=== PATIENT | female | born 1990 | race Caucasian/White ===

== ENCOUNTER 2019-05-24 18:18 | Emergency (ER) | payer OTHER ==
[2019-05-24] MEDS ORDERED: SODIUM CHLORIDE 0.9% 1,000 ML IV STA (18:39)
--- NOTE | 2019-05-24 18:44 | ED ---
General Adult HPI - General Source: patient, family, RN notes reviewed Mode of arrival: ambulatory Limitations: no limitations <Aaron Gallego - Last Filed: 05/24/19 20:42> <Rosa Ortiz - Last Filed: 05/25/19 03:08> - General Chief complaint: Overdose Stated complaint: Poss overdose - History of Present Illness Initial comments: This is a 28-year-old female who is brought in by her because she told him that she took a bunch of Seroquel. Patient states she took at 4:00. Patient is very lethargic and a very poor historian at this time so most of the history does come from the . states he came home from work after they've been arguing since yesterday and found her in the bed sleeping very soundly. Eventually he got out of her that she took some Seroquel because she wanted to kill herself. Patient states she was drinking some alcohol as well. Patient continues to say she does want to kill herself. This is all the information has and the patient is unable to give any further history b ecause she's agitated and is uncooperative at this time (Aaron Gallego) - Related Data Home Medications Medication Instructions Recorded Confirmed Citalopram Hydrobromide [CeleXA] 40 mg PO DIRECTED 05/24/19 05/24/19 Gabapentin [Neurontin] 200 mg PO DIRECTED 05/24/19 05/24/19 lamoTRIgine [LaMICtal] 200 mg PO DIRECTED 05/24/19 05/24/19 Allergies Allergy/AdvReac Type Severity Reaction Status Date / Time Tetracyclines Allergy Rash/Hives Verified 05/24/19 19:01 Review of Systems ROS Other: All systems not noted in ROS Statement are negative. <Aaron Gallego - Last Filed: 05/24/19 20:42> ROS Other: All systems not noted in ROS Statement are negative. <Rosa Ortiz - Last Filed: 05/25/19 03:08> ROS Statement: Those systems with pertinent positive or pertinent negative responses have been documented in the HPI. Past Medical History Past Medical History: No Reported History Additional Past Medical History / Comment(s): Current self-inflicted lacerations to anterior bilat. forearms with sutures. History of Any Multi-Drug Resistant Organisms: None Reported Past Surgical History: No Surgical Hx Reported Past Anesthesia/Blood Transfusion Reactions: No Reported Reaction Additional Past Anesthesia/Blood Transfusion Reaction / Comment(s): Pt. had 2 Epidurals with childbirth without any reaction but has had no other types of anesthesia or blood transfusions. Past Psychological History: Depression Smoking Status: Current every day smoker Past Alcohol Use History: None Reported Past Drug Use History: Marijuana - Past Family History Mother Family Medical History: Congestive Heart Failure (CHF), Liver Disease Additional Family Medical History / Comment(s): Pt. states her mother abused alcohol and at the age of 42 y.o. from CHF and Cirrhosis of the liver due to the sub. abuse. <Aaron Gallego - Last Filed: 05/24/19 20:42> General Exam Limitations: no limitations <Aaron Gallego - Last Filed: 05/24/19 20:42> - General Exam Comments Initial Comments: GENERAL: Patient is well-developed and well-nourished. Patient is nontoxic and well- hydrated and is in mild distress. Patient is lethargic and mildly combative ENT: Neck is soft and supple. No significant lymphadenopathy is noted. Oropharynx is clear. Moist mucous membranes. Neck has full range of motion without eliciting any pain. EYES: The sclera were anicteric and conjunctiva were pink and moist. Extraocular movements were intact and pupils were equal round and reactive to light. Eyelids were unremarkable. PULMONARY: Unlabored respirations. Good breath sounds bilaterally. No audible rales rhonchi or wheezing was noted. CARDIOVASCULAR: There is a regular rate and rhythm without any murmurs gallops or rubs. ABDOMEN: Soft and nontender with normal bowel sounds. SKIN: Skin is clear with no lesions or rashes and otherwise unremarkable. NEUROLOGIC: Patient is alert and oriented x3. Cranial nerves II through XII are grossly intact. Motor and sensory are also intact. Normal speech, volume and content. Symmetrical smile. MUSCULOSKELETAL: Normal extremities with adequate strength and full range of motion. No lower extremity swelling or edema. No calf tenderness. LYMPHATICS: No significant lymphadenopathy is noted PSYCHIATRIC: Patient is suicidal and does admit to overdosing (Aaron Gallego) Course Vital Signs 05/24/19 05/24/19 05/24/19 18:21 19:21 21:02 Temperature 98.1 F 97.5 F L 97.9 F Pulse Rate 78 90 105 H Respiratory 18 18 18 Rate Blood Pressure 112/74 100/68 102/68 O2 Sat by Pulse 98 94 L 95 Oximetry 05/24/19 05/24/19 05/25/19 22:27 23:47 02:02 Temperature 98.2 F 98.2 F Pulse Rate 89 91 Respiratory 15 16 16 Rate Blood Pressure 92/62 96/61 O2 Sat by Pulse 97 95 Oximetry Medical Decision Making - Lab Data Result diagrams: 05/24/19 18:50 05/24/19 18:50 <Aaron Gallego - Last Filed: 05/24/19 20:42> - Lab Data Result diagrams: 05/24/19 18:50 05/24/19 18:50 <Rosa Ortiz - Last Filed: 05/25/19 03:08> - Medical Decision Making EKG shows normal sinus rhythm at 98 bpm NH interval is 176 QRS is 86 QT interval 372 QTC is 474. Patient's EKG shows no ST segment elevation or depression or T wave abnormalities are noted. Dr. Ortiz will be taking over the care of this patient at 9 PM (Aaron Gallego) Patient care was signed out to me at 9 PM. Patient had presented with alcohol intoxication and intentional overdose. Patient initial EKG with mild prolongation of QT, poison control was contacted and recommended repeat EKG at 10:30pm Repeat EKG was obtained at 2226, rate is 88 rhythm is sinus there is a normal axis, there are normal intervals, NH 170, QRS 84, QTC is now only 462. There is no acute ST elevations or depressions no evidence of ischemia, infarction or arrhythmia. Poison control was updated on patient condition EKG finding and state that the patient is now medically cleared from their standpoint Patient is medically cleared for evaluation by emergency psychiatric services (Rosa Ortiz) - Lab Data Lab Results 05/24/19 05/24/19 05/24/19 Range/Units 18:50 18:50 19:02 WBC 14.4 H (3.8-10.6) k/uL RBC 4.36 (3.80-5.40) m/uL Hgb 14.0 (11.4-16.0) gm/dL Hct 38.8 (34.0-46.0) % MCV 89.1 (80.0-100.0) fL MCH 32.0 (25.0-35.0) pg MCHC 35.9 (31.0-37.0) g/dL RDW 11.7 (11.5-15.5) % Plt Count 290 (150-450) k/uL Neutrophils % 84 % Lymphocytes % 11 % Monocytes % 3 % Eosinophils % 0 % Basophils % 0 % Neutrophils # 12.1 H (1.3-7.7) k/uL Lymphocytes # 1.6 (1.0-4.8) k/uL Monocytes # 0.5 (0-1.0) k/uL Eosinophils # 0.1 (0-0.7) k/uL Basophils # 0.0 (0-0.2) k/uL Sodium 140 (137-145) mmol/L Potassium 3.7 (3.5-5.1) mmol/L Chloride 105 (98-107) mmol/L Carbon Dioxide 21 L (22-30) mmol/L Anion Gap 14 mmol/L BUN 8 (7-17) mg/dL Creatinine 0.59 (0.52-1.04) mg/dL Est GFR (CKD-EPI)AfAm >90 (>60 ml/min/1.73 sqM) Est GFR (CKD-EPI)NonAf >90 (>60 ml/min/1.73 sqM) Glucose 116 H (74-99) mg/dL Calcium 8.9 (8.4-10.2) mg/dL Total Bilirubin 0.3 (0.2-1.3) mg/dL AST 25 (14-36) U/L ALT 10 (9-52) U/L Alkaline Phosphatase 55 (38-126) U/L Total Protein 7.7 (6.3-8.2) g/dL Albumin 4.4 (3.5-5.0) g/dL Urine HCG, Qual (Not Detectd) Salicylates <1.0 mg/dL Urine Opiates Screen Not Detected (NotDetected) Ur Oxycodone Screen Not Detected (NotDetected) Urine Methadone Screen Not Detected (NotDetected) Ur Propoxyphene Screen Not Detected (NotDetected) Acetaminophen <10.0 ug/mL Ur Barbiturates Screen Not Detected (NotDetected) U Tricyclic Antidepress Detected H (NotDetected) Ur Phencyclidine Scrn Not Detected (NotDetected) Ur Amphetamines Screen Not Detected (NotDetected) U Methamphetamines Scrn Not Detected (NotDetected) U Benzodiazepines Scrn Not Detected (NotDetected) Urine Cocaine Screen Not Detected (NotDetected) U Marijuana (THC) Screen Detected H (NotDetected) Serum Alcohol 148 mg/dL 05/24/19 Range/Units 19:02 WBC (3.8-10.6) k/uL RBC (3.80-5.40) m/uL Hgb (11.4-16.0) gm/dL Hct (34.0-46.0) % MCV (80.0-100.0) fL MCH (25.0-35.0) pg MCHC (31.0-37.0) g/dL RDW (11.5-15.5) % Plt Count (150-450) k/uL Neutrophils % % Lymphocytes % % Monocytes % % Eosinophils % % Basophils % % Neutrophils # (1.3-7.7) k/uL Lymphocytes # (1.0-4.8) k/uL Monocytes # (0-1.0) k/uL Eosinophils # (0-0.7) k/uL Basophils # (0-0.2) k/uL Sodium (137-145) mmol/L Potassium (3.5-5.1) mmol/L Chloride (98-107) mmol/L Carbon Dioxide (22-30) mmol/L Anion Gap mmol/L BUN (7-17) mg/dL Creatinine (0.52-1.04) mg/dL Est GFR (CKD-EPI)AfAm (>60 ml/min/1.73 sqM) Est GFR (CKD-EPI)NonAf (>60 ml/min/1.73 sqM) Glucose (74-99) mg/dL Calcium (8.4-10.2) mg/dL Total Bilirubin (0.2-1.3) mg/dL AST (14-36) U/L ALT (9-52) U/L Alkaline Phosphatase (38-126) U/L Total Protein (6.3-8.2) g/dL Albumin (3.5-5.0) g/dL Urine HCG, Qual Not Detected (Not Detectd) Salicylates mg/dL Urine Opiates Screen (NotDetected) Ur Oxycodone Screen (NotDetected) Urine Methadone Screen (NotDetected) Ur Propoxyphene Screen (NotDetected) Acetaminophen ug/mL Ur Barbiturates Screen (NotDetected) U Tricyclic Antidepress (NotDetected) Ur Phencyclidine Scrn (NotDetected) Ur Amphetamines Screen (NotDetected) U Methamphetamines Scrn (NotDetected) U Benzodiazepines Scrn (NotDetected) Urine Cocaine Screen (NotDetected) U Marijuana (THC) Screen (NotDetected) Serum Alcohol mg/dL Disposition <Aaron Gallego - Last Filed: 05/24/19 20:42> <Rosa Ortiz - Last Filed: 05/25/19 03:08> Clinical Impression: Drug overdose, Suicidal behavior Disposition: TRANSFER TO PSYCH HOSP/UNIT Condition: Serious Referrals: None,Stated [Primary Care Provider] - 1-2 days
[2019-05-24 19:00] LABS: Basophils % (A) 0 %; Eosinophils # (A) 0.1 k/uL (0-0.7); Eosinophils % (A) 0 %; HCT 38.8 % (34.0-46.0); Lymphocytes # (A) 1.6 k/uL (1.0-4.8); Lymphocytes % (A) 11 %; MCHC 35.9 g/dL (31.0-37.0); MCV 89.1 fL (80.0-100.0); Mean Platelet Volume 5.8; Monocytes # (A) 0.5 k/uL (0-1.0); Monocytes % (A) 3 %; Neutrophils # (A) 12.1 k/uL (1.3-7.7); Neutrophils % (A) 84 %; Platelet Count 290 k/uL (150-450); RBC 4.36 m/uL (3.80-5.40); RDW 11.7 % (11.5-15.5); WBC 14.4 k/uL (3.8-10.6)
[2019-05-24 19:23] LABS: ALT 10 U/L (9-52); AST 25 U/L (14-36); Acetaminophen <10.0 ug/mL; African American GFR (CKD) >90 (>60 ml/min/1.73 sqM); Albumin 4.4 g/dL (3.5-5.0); Alkaline Phosphatase 55 U/L (38-126); Anion Gap 14 mmol/L; Blood Urea Nitrogen 8 mg/dL (7-17); Calcium 8.9 mg/dL (8.4-10.2); Carbon Dioxide 21 mmol/L (22-30); Chloride 105 mmol/L (98-107); Glucose 116 mg/dL (74-99); Potassium 3.7 mmol/L (3.5-5.1); Salicylate <1.0 mg/dL; Sodium 140 mmol/L (137-145); Total Bilirubin 0.3 mg/dL (0.2-1.3); Total Protein 7.7 g/dL (6.3-8.2)
[2019-05-24 19:24] LABS: Amphetamine Screen,Urine Not Detected (NotDetected); Barbiturate Screen,Urine Not Detected (NotDetected); Benzodiazepines Screen,Urine Not Detected (NotDetected); Cocaine Screen,Urine Not Detected (NotDetected); Methadone Screen, Urine Not Detected (NotDetected); Opiate Screen,Urine Not Detected (NotDetected); Oxycodone Screen, Urine Not Detected (NotDetected); Phencyclidine Screen,Urine Not Detected (NotDetected); Tricyclic Antidepressant,Urine Detected (NotDetected); Urn Cannabinoid Scrn Detected (NotDetected)
[2019-05-24 19:24] LABS: Alcohol 148 mg/dL
[2019-05-24 23:50] VITALS: RESP 16
[2019-05-25 08:16] VITALS: BP 118/72; PULSE 78; TEMP 98
== END 2019-05-25 08:22 ==
LOC: EC 18:18
DX: T43.592A Poisoning by other antipsychotics and neuroleptics, intentional self-harm, initial encounter (principal); R45.851 Suicidal ideations; I45.81 Long QT syndrome; F32.9 Major depressive disorder, single episode, unspecified; F10.129 Alcohol abuse with intoxication, unspecified; F17.200 Nicotine dependence, unspecified, uncomplicated; Z79.899 Other long term (current) drug therapy; Z88.1 Allergy status to other antibiotic agents
CPT/HCPCS: 36415; 80053; 80306; 80320; 80329; 81025; 83520; 85025; 93005; 96360; 99285

== ENCOUNTER 2020-10-07 16:39 | Inpatient (IN) | payer OTHER ==
[2020-10-07] MEDS ORDERED: SODIUM CHLORIDE 0.9% 1,000 ML IV STA (16:53)
--- NOTE | 2020-10-07 16:57 | ED ---
General Adult HPI <Herber Crenshaw - Last Filed: 10/07/20 23:10> - General Source: patient, EMS, RN notes reviewed, old records reviewed Mode of arrival: EMS Limitations: no limitations <Leon Pringle - Last Filed: 10/11/20 12:33> - General Chief complaint: Psychiatric Symptoms Stated complaint: Mental health Time Seen by Provider: 10/07/20 16:41 - History of Present Illness Initial comments: 30 -year-old female presenting with suicidal attempt, depression, suicidal ideation. Patient had been transported by EMS. She states she's very depressed and does not want to be admitted to her anymore. She states she drank between one and 2 shots of isopropyl alcohol. She does not have this container with her. She denies any other illicit drugs. (Leon Pringle) - Related Data Home Medications Medication Instructions Recorded Confirmed Gabapentin [Neurontin] 100 mg PO QID 05/24/19 10/07/20 lamoTRIgine [LaMICtal] 200 mg PO HS 05/24/19 10/07/20 Escitalopram [Lexapro] 20 mg PO DAILY 10/07/20 10/07/20 Allergies Allergy/AdvReac Type Severity Reaction Status Date / Time Tetracyclines Allergy Intermediate Rash/Hives Verified 10/08/20 05:32 Review of Systems ROS Other: All systems not noted in ROS Statement are negative. <Herber Crenshaw - Last Filed: 10/07/20 23:10> ROS Other: All systems not noted in ROS Statement are negative. <Leon Pringle - Last Filed: 10/11/20 12:33> ROS Statement: Those systems with pertinent positive or pertinent negative responses have been documented in the HPI. Past Medical History Past Medical History: No Reported History Additional Past Medical History / Comment(s): Current self-inflicted lacerations to anterior bilat. forearms with sutures. History of Any Multi-Drug Resistant Organisms: None Reported Past Surgical History: No Surgical Hx Reported Past Anesthesia/Blood Transfusion Reactions: No Reported Reaction Additional Past Anesthesia/Blood Transfusion Reaction / Comment(s): Pt. had 2 Epidurals with childbirth without any reaction but has had no other types of anesthesia or blood transfusions. Past Psychological History: Depression Smoking Status: Current every day smoker Past Alcohol Use History: None Reported Past Drug Use History: Marijuana - Past Family History Mother Family Medical History: Congestive Heart Failure (CHF), Liver Disease Additional Family Medical History / Comment(s): Pt. states her mother abused alcohol and at the age of 42 y.o. from CHF and Cirrhosis of the liver due to the sub. abuse. <Leon Pringle Ashlyn - Last Filed: 10/11/20 12:33> General Exam Limitations: no limitations General appearance: alert, appears intoxicated, anxious Head exam: Present: atraumatic, normocephalic Eye exam: Present: normal appearance, PERRL ENT exam: Present: normal exam Neck exam: Present: normal inspection. Absent: tenderness, meningismus Respiratory exam: Present: normal lung sounds bilaterally. Absent: respiratory distress, wheezes Cardiovascular Exam: Present: normal rhythm, tachycardia GI/Abdominal exam: Present: soft. Absent: distended, tenderness, guarding Extremities exam: Present: normal inspection, normal capillary refill. Absent: pedal edema, calf tenderness Neurological exam: Present: alert, oriented X3, CN II-XII intact. Absent: motor sensory deficit Psychiatric exam: Present: agitated, anxious, suicidal ideation Skin exam: Present: warm, dry, intact. Absent: cyanosis, diaphoretic <SethmykelfedericoLeon Ashlyn - Last Filed: 10/11/20 12:33> Course <Herber Crenshaw - Last Filed: 10/07/20 23:10> <SethtonyaLeon Ashlyn - Last Filed: 10/11/20 12:33> Vital Signs 10/07/20 10/07/20 10/07/20 16:46 17:29 17:56 Temperature 97.4 F L Pulse Rate 125 H 131 H 116 H Pulse Rate [ Right Sitting Pulse Oximetery ] Respiratory 18 24 22 Rate Blood Pressure 130/91 116/88 Blood Pressure [Right Arm Sitting] O2 Sat by Pulse 98 100 98 Oximetry 10/07/20 10/07/20 10/07/20 19:00 20:00 22:00 Temperature Pulse Rate 123 H 103 H 96 Pulse Rate [ Right Sitting Pulse Oximetery ] Respiratory 20 20 18 Rate Blood Pressure 101/65 105/73 101/64 Blood Pressure [Right Arm Sitting] O2 Sat by Pulse 97 99 98 Oximetry 10/08/20 10/08/20 01:00 04:38 Temperature 98.9 F Pulse Rate 71 Pulse Rate [ 106 H Right Sitting Pulse Oximetery ] Respiratory 18 20 Rate Blood Pressure 92/62 Blood Pressure 113/77 [Right Arm Sitting] O2 Sat by Pulse 99 95 Oximetry - Reevaluation(s) Reevaluation #1: 10/07/20 19:22 Patient control has been contacted, they recommend repeat BMP at 4 hours to ensure that she does not develop anion gap metabolic acidosis and that the CO2 remains normal. (Leon Pringle) Reevaluation #2: 10/07/20 2100 Patient's care is signed out at shift change to Dr Crenshaw awaiting repeat BMP and EPS evaluation. (Leon Pringle) Reevaluation #3: 10/07/20 23:11 Patient was endorsed to me by ED physician Dr. Pringle (secondary to end of shift) with patient's repeat BMP and EPS nurse evaluation still pending. Patient's repeat BMP does not show widening of her anion gap. EPS nurse evaluation is still pending at this time. Patient was endorsed to Dr. Guerin secondary to shift change. Dr. Guerin to take over care of the patient at this time. (Herber Crenshaw) EKG Findings - EKG Comments: EKG Findings:: EKG: Sinus tachycardia, rate of 102, SC interval 142, QRS duration 82, QTC 417, no ST segment elevation. <Leon Pringle - Last Filed: 10/11/20 12:33> Medical Decision Making - Lab Data Result diagrams: 10/07/20 17:12 10/07/20 22:13 <Herber Crenshaw - Last Filed: 10/07/20 23:10> - Lab Data Result diagrams: 10/08/20 07:31 10/08/20 07:31 <Leon Pringle - Last Filed: 10/11/20 12:33> - Lab Data Lab Results 10/07/20 10/07/20 10/07/20 Range/Units 17:12 17:12 17:12 WBC 16.3 H (3.8-10.6) k/uL RBC 4.69 (3.80-5.40) m/uL Hgb 14.8 (11.4-16.0) gm/dL Hct 43.7 (34.0-46.0) % MCV 93.2 (80.0-100.0) fL MCH 31.6 (25.0-35.0) pg MCHC 33.9 (31.0-37.0) g/dL RDW 11.5 (11.5-15.5) % Plt Count 375 (150-450) k/uL MPV 6.2 Neutrophils % 71 % Lymphocytes % 23 % Monocytes % 4 % Eosinophils % 1 % Basophils % 0 % Neutrophils # 11.6 H (1.3-7.7) k/uL Lymphocytes # 3.7 (1.0-4.8) k/uL Monocytes # 0.7 (0-1.0) k/uL Eosinophils # 0.1 (0-0.7) k/uL Basophils # 0.1 (0-0.2) k/uL PT 10.3 (9.0-12.0) sec INR 1.0 (<1.2) Sodium (137-145) mmol/L Potassium (3.5-5.1) mmol/L Chloride (98-107) mmol/L Carbon Dioxide (22-30) mmol/L Anion Gap mmol/L BUN (7-17) mg/dL Creatinine (0.52-1.04) mg/dL Est GFR (CKD-EPI)AfAm (>60 ml/min/1.73 sqM) Est GFR (CKD-EPI)NonAf (>60 ml/min/1.73 sqM) Glucose (74-99) mg/dL Osmolality (280-301) mosm/kg Calcium (8.4-10.2) mg/dL Phosphorus (2.5-4.5) mg/dL Magnesium (1.6-2.3) mg/dL Total Bilirubin (0.2-1.3) mg/dL AST (14-36) U/L ALT (4-34) U/L Alkaline Phosphatase (38-126) U/L Creatine Kinase (30-135) U/L Total Protein (6.3-8.2) g/dL Albumin (3.5-5.0) g/dL Urine HCG, Qual Not Detected (Not Detectd) Salicylates mg/dL Urine Opiates Screen (NotDetected) Ur Oxycodone Screen (NotDetected) Urine Methadone Screen (NotDetected) Ur Propoxyphene Screen (NotDetected) Acetaminophen ug/mL Ur Barbiturates Screen (NotDetected) U Tricyclic Antidepress (NotDetected) Ur Phencyclidine Scrn (NotDetected) Ur Amphetamines Screen (NotDetected) U Methamphetamines Scrn (NotDetected) U Benzodiazepines Scrn (NotDetected) Urine Cocaine Screen (NotDetected) U Marijuana (THC) Screen (NotDetected) Serum Alcohol mg/dL Acetone, Qual (Negative) Coronavirus (PCR) (Not Detectd) 10/07/20 10/07/20 10/07/20 Range/Units 17:12 17:12 22:13 WBC (3.8-10.6) k/uL RBC (3.80-5.40) m/uL Hgb (11.4-16.0) gm/dL Hct (34.0-46.0) % MCV (80.0-100.0) fL MCH (25.0-35.0) pg MCHC (31.0-37.0) g/dL RDW (11.5-15.5) % Plt Count (150-450) k/uL MPV Neutrophils % % Lymphocytes % % Monocytes % % Eosinophils % % Basophils % % Neutrophils # (1.3-7.7) k/uL Lymphocytes # (1.0-4.8) k/uL Monocytes # (0-1.0) k/uL Eosinophils # (0-0.7) k/uL Basophils # (0-0.2) k/uL PT (9.0-12.0) sec INR (<1.2) Sodium 143 139 (137-145) mmol/L Potassium 3.3 L 3.5 (3.5-5.1) mmol/L Chloride 106 110 H (98-107) mmol/L Carbon Dioxide 25 24 (22-30) mmol/L Anion Gap 12 5 mmol/L BUN 11 8 (7-17) mg/dL Creatinine 0.66 0.60 (0.52-1.04) mg/dL Est GFR (CKD-EPI)AfAm >90 >90 (>60 ml/min/1.73 sqM) Est GFR (CKD-EPI)NonAf >90 >90 (>60 ml/min/1.73 sqM) Glucose 100 H 106 H (74-99) mg/dL Osmolality 327 H* (280-301) mosm/kg Calcium 9.5 8.4 (8.4-10.2) mg/dL Phosphorus 3.1 (2.5-4.5) mg/dL Magnesium 2.0 (1.6-2.3) mg/dL Total Bilirubin 0.3 (0.2-1.3) mg/dL AST 21 (14-36) U/L ALT 18 (4-34) U/L Alkaline Phosphatase 56 (38-126) U/L Creatine Kinase 91 (30-135) U/L Total Protein 8.2 (6.3-8.2) g/dL Albumin 4.5 (3.5-5.0) g/dL Urine HCG, Qual (Not Detectd) Salicylates <1.0 mg/dL Urine Opiates Screen Not Detected (NotDetected) Ur Oxycodone Screen Not Detected (NotDetected) Urine Methadone Screen Not Detected (NotDetected) Ur Propoxyphene Screen Not Detected (NotDetected) Acetaminophen <10.0 ug/mL Ur Barbiturates Screen Not Detected (NotDetected) U Tricyclic Antidepress Not Detected (NotDetected) Ur Phencyclidine Scrn Not Detected (NotDetected) Ur Amphetamines Screen Not Detected (NotDetected) U Methamphetamines Scrn Not Detected (NotDetected) U Benzodiazepines Scrn Not Detected (NotDetected) Urine Cocaine Screen Not Detected (NotDetected) U Marijuana (THC) Screen Detected H (NotDetected) Serum Alcohol <10 mg/dL Acetone, Qual Positive (Negative) Coronavirus (PCR) (Not Detectd) 10/08/20 Range/Units 00:51 WBC (3.8-10.6) k/uL RBC (3.80-5.40) m/uL Hgb (11.4-16.0) gm/dL Hct (34.0-46.0) % MCV (80.0-100.0) fL MCH (25.0-35.0) pg MCHC (31.0-37.0) g/dL RDW (11.5-15.5) % Plt Count (150-450) k/uL MPV Neutrophils % % Lymphocytes % % Monocytes % % Eosinophils % % Basophils % % Neutrophils # (1.3-7.7) k/uL Lymphocytes # (1.0-4.8) k/uL Monocytes # (0-1.0) k/uL Eosinophils # (0-0.7) k/uL Basophils # (0-0.2) k/uL PT (9.0-12.0) sec INR (<1.2) Sodium (137-145) mmol/L Potassium (3.5-5.1) mmol/L Chloride (98-107) mmol/L Carbon Dioxide (22-30) mmol/L Anion Gap mmol/L BUN (7-17) mg/dL Creatinine (0.52-1.04) mg/dL Est GFR (CKD-EPI)AfAm (>60 ml/min/1.73 sqM) Est GFR (CKD-EPI)NonAf (>60 ml/min/1.73 sqM) Glucose (74-99) mg/dL Osmolality (280-301) mosm/kg Calcium (8.4-10.2) mg/dL Phosphorus (2.5-4.5) mg/dL Magnesium (1.6-2.3) mg/dL Total Bilirubin (0.2-1.3) mg/dL AST (14-36) U/L ALT (4-34) U/L Alkaline Phosphatase (38-126) U/L Creatine Kinase (30-135) U/L Total Protein (6.3-8.2) g/dL Albumin (3.5-5.0) g/dL Urine HCG, Qual (Not Detectd) Salicylates mg/dL Urine Opiates Screen (NotDetected) Ur Oxycodone Screen (NotDetected) Urine Methadone Screen (NotDetected) Ur Propoxyphene Screen (NotDetected) Acetaminophen ug/mL Ur Barbiturates Screen (NotDetected) U Tricyclic Antidepress (NotDetected) Ur Phencyclidine Scrn (NotDetected) Ur Amphetamines Screen (NotDetected) U Methamphetamines Scrn (NotDetected) U Benzodiazepines Scrn (NotDetected) Urine Cocaine Screen (NotDetected) U Marijuana (THC) Screen (NotDetected) Serum Alcohol mg/dL Acetone, Qual (Negative) Coronavirus (PCR) Not Detected (Not Detectd) Disposition <Herber Crenshaw - Last Filed: 10/07/20 23:10> Is patient prescribed a controlled substance at d/c from ED?: No <Leon Pringle - Last Filed: 10/11/20 12:33> Clinical Impression: Depression, Attempted suicide Disposition: ADMITTED IP TO THIS HOSP Condition: Stable
[2020-10-07] MEDS ORDERED: PANTOPRAZOLE 40 MG/10 ML VIAL IVP STA (17:13)
[2020-10-07 17:19] LABS: Basophils # (A) 0.1 k/uL (0-0.2); Basophils % (A) 0 %; Eosinophils # (A) 0.1 k/uL (0-0.7); Eosinophils % (A) 1 %; HCT 43.7 % (34.0-46.0); HGB 14.8 gm/dL (11.4-16.0); Lymphocytes # (A) 3.7 k/uL (1.0-4.8); Lymphocytes % (A) 23 %; MCH 31.6 pg (25.0-35.0); MCHC 33.9 g/dL (31.0-37.0); MCV 93.2 fL (80.0-100.0); Mean Platelet Volume 6.2; Monocytes # (A) 0.7 k/uL (0-1.0); Monocytes % (A) 4 %; Neutrophils # (A) 11.6 k/uL (1.3-7.7); Neutrophils % (A) 71 %; Platelet Count 375 k/uL (150-450); RBC 4.69 m/uL (3.80-5.40); RDW 11.5 % (11.5-15.5); WBC 16.3 k/uL (3.8-10.6)
[2020-10-07 17:28] LABS: Amphetamine Screen,Urine Not Detected (NotDetected); Barbiturate Screen,Urine Not Detected (NotDetected); Benzodiazepines Screen,Urine Not Detected (NotDetected); Cocaine Screen,Urine Not Detected (NotDetected); Methadone Screen, Urine Not Detected (NotDetected); Opiate Screen,Urine Not Detected (NotDetected); Oxycodone Screen, Urine Not Detected (NotDetected); Phencyclidine Screen,Urine Not Detected (NotDetected); Prothrombin Time 10.3 sec (9.0-12.0); Tricyclic Antidepressant,Urine Not Detected (NotDetected); Urn Cannabinoid Scrn Detected (NotDetected)
[2020-10-07 17:32] LABS: ALT 18 U/L (4-34); AST 21 U/L (14-36); Acetaminophen <10.0 ug/mL; African American GFR (CKD) >90 (>60 ml/min/1.73 sqM); Albumin 4.5 g/dL (3.5-5.0); Alcohol <10 mg/dL; Alkaline Phosphatase 56 U/L (38-126); Anion Gap 12 mmol/L; Blood Urea Nitrogen 11 mg/dL (7-17); Calcium 9.5 mg/dL (8.4-10.2); Carbon Dioxide 25 mmol/L (22-30); Chloride 106 mmol/L (98-107); Creatine Kinase 91 U/L (30-135); Glucose 100 mg/dL (74-99); Non-African American GFR(CKD) >90 (>60 ml/min/1.73 sqM); Phosphorus 3.1 mg/dL (2.5-4.5); Potassium 3.3 mmol/L (3.5-5.1); Salicylate <1.0 mg/dL; Sodium 143 mmol/L (137-145); Total Bilirubin 0.3 mg/dL (0.2-1.3); Total Protein 8.2 g/dL (6.3-8.2)
[2020-10-07] MEDS ORDERED: POTASSIUM CHLORIDE ER 20 MEQ TAB.ER PO STA (17:41)
[2020-10-07] MEDS ORDERED: SODIUM CHLORIDE 0.9% 500 ML 500 ML IV ONE (19:18)
[2020-10-07] MEDS ORDERED: LORazepam 2 MG/ML INJ IV STA (19:19)
[2020-10-07 22:33] LABS: African American GFR (CKD) >90 (>60 ml/min/1.73 sqM); Anion Gap 5 mmol/L; Blood Urea Nitrogen 8 mg/dL (7-17); Calcium 8.4 mg/dL (8.4-10.2); Carbon Dioxide 24 mmol/L (22-30); Chloride 110 mmol/L (98-107); Glucose 106 mg/dL (74-99); Non-African American GFR(CKD) >90 (>60 ml/min/1.73 sqM); Potassium 3.5 mmol/L (3.5-5.1); Sodium 139 mmol/L (137-145)
[2020-10-08] MEDS ORDERED: MAGNESIUM HYDROXIDE 2,400 MG/10 ML CUP PO PRN (04:57)
[2020-10-08] MEDS ORDERED: MAG HYDROX/AL HYDROX/SIMETH 30 ML CUP PO PRN (04:57)
[2020-10-08] MEDS ORDERED: LORazepam 2 MG/ML INJ IM PRN (04:59)
[2020-10-08] MEDS ORDERED: HALOPERIDOL LACTATE 5 MG/ML 1 ML VIAL IM PRN (04:59)
[2020-10-08 08:10] LABS: Albumin 3.8 g/dL (3.5-5.0); Bilirubin, Delta 0.2 mg/dL (0.0-0.2); Bilirubin,Unconjugated 0.3 mg/dL (0.0-1.1); Total Bilirubin 0.5 mg/dL (0.2-1.3)
[2020-10-08] MEDS: NICOTINE 14MG/24HR PATCH TRANSDERM SCH (09:05)
[2020-10-08 09:20] LABS: Basophils # (A) 0.1 k/uL (0-0.2); Basophils % (A) 1 %; Eosinophils # (A) 0.1 k/uL (0-0.7); Eosinophils % (A) 0 %; HCT 40.8 % (34.0-46.0); HGB 13.5 gm/dL (11.4-16.0); Lymphocytes # (A) 3.7 k/uL (1.0-4.8); Lymphocytes % (A) 30 %; MCH 31.3 pg (25.0-35.0); MCHC 33.1 g/dL (31.0-37.0); MCV 94.7 fL (80.0-100.0); Mean Platelet Volume 6.6; Monocytes # (A) 0.5 k/uL (0-1.0); Monocytes % (A) 4 %; Neutrophils # (A) 7.8 k/uL (1.3-7.7); Neutrophils % (A) 64 %; Platelet Count 313 k/uL (150-450); RBC 4.31 m/uL (3.80-5.40); RDW 11.7 % (11.5-15.5); WBC 12.3 k/uL (3.8-10.6)
[2020-10-08 09:44] LABS: African American GFR (CKD) >90 (>60 ml/min/1.73 sqM); Anion Gap 6 mmol/L; Blood Urea Nitrogen 7 mg/dL (7-17); Calcium 8.9 mg/dL (8.4-10.2); Carbon Dioxide 22 mmol/L (22-30); Chloride 111 mmol/L (98-107); Glucose 104 mg/dL (74-99); Magnesium 1.9 mg/dL (1.6-2.3); Non-African American GFR(CKD) >90 (>60 ml/min/1.73 sqM); Potassium 3.7 mmol/L (3.5-5.1); Sodium 139 mmol/L (137-145)
--- NOTE | 2020-10-08 10:31 | P.HP ---
Psychiatric H&P - . H&P Date: 10/08/20 History & Physical: IDENTIFYING DATA: She is a 30-year-old female admitted to psychiatric unit involuntarily following a attempted overdose with isopropyl alcohol. HISTORY OF PRESENT ILLNESS: She was evaluated and cleared in the emergency room. Her urine toxicology was positive for acetone and her serum osmolality was elevated at 327. She did not develop widening anion gap suggestive of isopropyl alcohol poisoning. This was difficult interview in that she cried or sobbed throughout the interview. She talked about feeling bad and expressed frustration that she cannot explain why she is feeling so bad. She made such comments as "they keep asking me what's wrong but I can't tell them because I don't know." She was enrolled with [facility] up until April 2020 and treated for a recurrent major depressive disorder. She withdrew from treatment and stopped her psychotropic medications that included Abilify maintaining a compound Lexapro and Ativan. She appeared unable to explain the reason for discontinuing treatment. She described feeling depressed and struggling with thoughts of suicide. She admitted to impairment in energy, concentration, appetite and ability to enjoy herself. She alleged that she was able to take care of her children and her home. Apparently her [id number]'s assists her. On the day of admission she drank 1-2 "shots" affect isopropyl alcohol in addition to [place] alcohol. When I asked her if she had drank the isopropyl alcohol thinking that he'll end her life she sobbed that she "does not know." I was unable to obtain a clear history of elevated mood or sustained irritability suggestive of donna or hypomania. She did not endorse psychotic symptoms such as auditory, visual or olfactory hallucinations, ideas reference, thought insertion, thought broadcasting or thought control. She was vague about her alcohol use and complained that "everybody knows that Sh[place]onne can't drink." PAST PSYCHIATRIC HISTORY: She was unable to provide a coherent past psychiatric history. I obtained this information from the medical record. She has history of mental problems since she was an adolescent. She has history of cutting beginning at age 15 until 2006. A progress note indicates that the cutting was severe enough to require medical intervention and sutures. She was last admitted to [facility] 2018 when she was discharged with diagnoses of bipolar 2 disorder. She was admitted to [place] [address] in to our unit in 2016. She admitted to a psychiatric facility in [place] about 8 or 9 years ago. She has had 3 or 4 suicide attempts by overdosing and cutting her wrists. She was involved with community mental health, as noted above, until April 2020. PAST MEDICAL HISTORY: Denied ALLERGIES: Cycling SUBSTANCE USE HISTORY: She has a history of alcohol and cannabis use. She was diagnosed with alcohol use disorder severe in received inpatient substance abuse treatment at [facility] 2015. She was an individual for 2 years after she was discharged. FAMILY PSYCHIATRIC/SUBSTANCE USE HISTORY: Her mother had a history of depression and alcohol use disorder she 11 years ago from alcohol poisoning. LEGAL HISTORY: She denied history of legal problems. SOCIAL HISTORY: She was born and raised in [place]. She never knew her father. She was raised by her biological mother and her stepfather. He has one biological sister and 2 half-sisters. She did not complete high school but obtained a GED. She has no significant work history. The home when she was 16 and her when she was 17. They have 2 children. He supposedly has a history of PTSD from serving as a Marine. MENTAL STATUS EXAM: She presented as a thin casually groomed 30-year-old female who has multiple tattoos. She made eye contact and attended to the interview. She had no prominent physical abnormalities. She had a sad facial expression. She is alert and oriented to person and place. She had marked psychomotor retardation but no abnormal involuntary movements. Her speech was not spontaneous and had decreased rate and rhythm. Her speech was difficult to understand because she was crying and sobbing throughout the interview. Her affect was markedly depressed and not reactive. She expressed suicidal ideation and wishes. She denied homicidal ideation. She is hopeless, helpless and worthless. She ruminated over illness and her impairment. She did not express clear ideas reference, paranoid ideation or delusions. Her thinking was concrete but her associations were goal-directed. She perseverated about her impairment severity of her illness. She denied hallucinations did not appear to be responding to internal stimuli. Global impression of intellect is average. She is aware of her illness and need for treatment. STRENGTHS: Stable housing, supportive family, good physical health WEAKNESSES: Recurrent mental illness, alcohol use disorder, recurrent suicidal ideation IMPRESSION: She is a 30-year-old female who has history of recurrent depressive disorder. [facility] with worsening depression, suicidal ideation and a suicide attempt by overdose of isopropyl alcohol. She is melancholically depressed but doesn't express clear psychotic symptoms. She is struggling with abstinence from alcohol. She'll be treated inpatient basis with combination of psychopharmacology and multimodal therapy. 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 Safety precautions. Consult medicine for initial physical exam and medical history. 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 Obtained medical records from [facility]. Restart Lexapro 10 mg daily and titrated according to response and tolerance. Start Abilify 5 mg titrated according to clinical response and tolerance. Consider mood stabilizer if her symptoms do not improve. Encourage participation in therapeutic groups and activities. Evaluate, status response to treatment daily basis. Allergies Allergy/AdvReac Type Severity Reaction Status Date / Time Tetracyclines Allergy Intermediate Rash/Hives Verified 10/08/20 05:32 Vital Signs Temp 98.9 F 10/08/20 04:38 Pulse 106 H 10/08/20 04:38 Resp 20 10/08/20 04:38 BP 113/77 10/08/20 04:38 Pulse Ox 95 10/08/20 04:38 Intake & Output 10/07/20 10/08/20 10/08/20 18:59 06:59 18:59 Weight 61.235 kg 63.4 kg Laboratory Last Values WBC 12.3 k/uL (3.8-10.6) H 10/08/20 07:31 RBC 4.31 m/uL (3.80-5.40) 10/08/20 07:31 Hgb 13.5 gm/dL (11.4-16.0) 10/08/20 07:31 Hct 40.8 % (34.0-46.0) 10/08/20 07:31 MCV 94.7 fL (80.0-100.0) 10/08/20 07:31 MCH 31.3 pg (25.0-35.0) 10/08/20 07:31 MCHC 33.1 g/dL (31.0-37.0) 10/08/20 07:31 RDW 11.7 % (11.5-15.5) 10/08/20 07:31 Plt Count 313 k/uL (150-450) 10/08/20 07:31 MPV 6.6 10/08/20 07:31 Neutrophils % 64 % 10/08/20 07:31 Lymphocytes % 30 % 10/08/20 07:31 Monocytes % 4 % 10/08/20 07:31 Eosinophils % 0 % 10/08/20 07:31 Basophils % 1 % 10/08/20 07:31 Neutrophils # 7.8 k/uL (1.3-7.7) H 10/08/20 07:31 Lymphocytes # 3.7 k/uL (1.0-4.8) 10/08/20 07:31 Monocytes # 0.5 k/uL (0-1.0) 10/08/20 07:31 Eosinophils # 0.1 k/uL (0-0.7) 10/08/20 07:31 Basophils # 0.1 k/uL (0-0.2) 10/08/20 07:31 PT 10.3 sec (9.0-12.0) 10/07/20 17:12 INR 1.0 (<1.2) 10/07/20 17:12 Sodium 139 mmol/L (137-145) 10/08/20 07:31 Potassium 3.7 mmol/L (3.5-5.1) 10/08/20 07:31 Chloride 111 mmol/L (98-107) H 10/08/20 07:31 Carbon Dioxide 22 mmol/L (22-30) 10/08/20 07:31 Anion Gap 6 mmol/L 10/08/20 07:31 BUN 7 mg/dL (7-17) 10/08/20 07:31 Creatinine 0.63 mg/dL (0.52-1.04) 10/08/20 07:31 Est GFR (CKD-EPI)AfAm >90 (>60 ml/min/1.73 sqM) 10/08/20 07:31 Est GFR (CKD-EPI)NonAf >90 (>60 ml/min/1.73 sqM) 10/08/20 07:31 Glucose 104 mg/dL (74-99) H 10/08/20 07:31 Osmolality 327 mosm/kg (280-301) H* 10/07/20 17:12 Calcium 8.9 mg/dL (8.4-10.2) 10/08/20 07:31 Phosphorus 3.1 mg/dL (2.5-4.5) 10/07/20 17:12 Magnesium 1.9 mg/dL (1.6-2.3) 10/08/20 07:31 Total Bilirubin 0.5 mg/dL (0.2-1.3) 10/08/20 07:31 Conjugated Bilirubin 0.0 mg/dL (0.0-0.3) 10/08/20 07:31 Unconjugated Bilirubin 0.3 mg/dL (0.0-1.1) 10/08/20 07:31 Delta Bilirubin 0.2 mg/dL (0.0-0.2) 10/08/20 07:31 AST 18 U/L (14-36) 10/08/20 07:31 ALT 13 U/L (4-34) 10/08/20 07:31 Alkaline Phosphatase 49 U/L (38-126) 10/08/20 07:31 Creatine Kinase 91 U/L (30-135) 10/07/20 17:12 Total Protein 7.0 g/dL (6.3-8.2) 10/08/20 07:31 Albumin 3.8 g/dL (3.5-5.0) 10/08/20 07:31 Triglycerides 69 mg/dL (<150) 10/08/20 07:31 Cholesterol 175 mg/dL (<200) 10/08/20 07:31 LDL Cholesterol, Calc 114 mg/dL (0-99) H 10/08/20 07:31 HDL Cholesterol 47 mg/dL (40-60) 10/08/20 07:31 TSH 0.847 mIU/L (0.465-4.680) 10/08/20 07:31 Urine HCG, Qual Not Detected (Not Detectd) 10/07/20 17:12 Salicylates <1.0 mg/dL 10/07/20 17:12 Urine Opiates Screen Not Detected (NotDetected) 10/07/20 17:12 Ur Oxycodone Screen Not Detected (NotDetected) 10/07/20 17:12 Urine Methadone Screen Not Detected (NotDetected) 10/07/20 17:12 Ur Propoxyphene Screen Not Detected (NotDetected) 10/07/20 17:12 Acetaminophen <10.0 ug/mL 10/07/20 17:12 Ur Barbiturates Screen Not Detected (NotDetected) 10/07/20 17:12 U Tricyclic Antidepress Not Detected (NotDetected) 10/07/20 17:12 Ur Phencyclidine Scrn Not Detected (NotDetected) 10/07/20 17:12 Ur Amphetamines Screen Not Detected (NotDetected) 10/07/20 17:12 U Methamphetamines Scrn Not Detected (NotDetected) 10/07/20 17:12 U Benzodiazepines Scrn Not Detected (NotDetected) 10/07/20 17:12 Urine Cocaine Screen Not Detected (NotDetected) 10/07/20 17:12 U Marijuana (THC) Screen Detected (NotDetected) H 10/07/20 17:12 Serum Alcohol <10 mg/dL 10/07/20 17:12 Acetone, Qual Positive (Negative) 10/07/20 17:12 Coronavirus (PCR) Not Detected (Not Detectd) 10/08/20 00:51 10/08/20 10:08
[2020-10-08] MEDS: ARIPiprazole 5 MG TAB PO SCH (11:22)
[2020-10-08] MEDS: ESCITALOPRAM 10 MG TAB PO SCH (11:22)
[2020-10-08] MEDS: haloperidoL 5 MG TAB PO PRN (19:37)
[2020-10-08] MEDS: LORazepam 1 MG TAB PO PRN (19:37)
--- NOTE | 2020-10-08 22:20 | P.CONS ---
History of Present Illness - Reason for Consult Consult date: 10/08/20 - History of Present Illness Patient is a 30-year-old female with a PMH of depression, tobacco abuse, and marijuana abuse who was brought into the emergency via EMS for severe depression. The patient had admitted to drinking 2 shots of isopropyl alcohol. Poison control was contacted in the emergency room the patient was monitored and subsequently admitted to the mental health unit where she was seen and evaluated at the bedside. She reported continued feelings of depression but denied any additional complaints. He denied chest discomfort, shortness of breath, fever, chills, nausea, vomiting, dizziness, cough, or diarrhea. EKG in the emergency room revealed sinus tachycardia at 10 2 bpm with no ischemic changes. Laboratory evaluation was reviewed. Review of Systems Pertinent positives and negatives as discussed in HPI, a complete review of systems was performed and all other systems are negative. Past Medical History Past Medical History: No Reported History Additional Past Medical History / Comment(s): Current self-inflicted lacerations to anterior bilat. forearms with sutures. History of Any Multi-Drug Resistant Organisms: None Reported Past Surgical History: No Surgical Hx Reported Past Anesthesia/Blood Transfusion Reactions: No Reported Reaction Additional Past Anesthesia/Blood Transfusion Reaction / Comm: Pt. had 2 Epidurals with childbirth without any reaction but has had no other types of anesthesia or blood transfusions. Smoking Status: Current every day smoker - Past Family History Mother Family Medical History: Congestive Heart Failure (CHF), Liver Disease Additional Family Medical History / Comment(s): Pt. states her mother abused alcohol and at the age of 42 y.o. from CHF and Cirrhosis of the liver due to the sub. abuse. Medications and Allergies Home Medications Medication Instructions Recorded Confirmed Type Gabapentin [Neurontin] 100 mg PO QID 05/24/19 10/07/20 History lamoTRIgine [LaMICtal] 200 mg PO HS 05/24/19 10/07/20 History Escitalopram [Lexapro] 20 mg PO DAILY 10/07/20 10/07/20 History Allergies Allergy/AdvReac Type Severity Reaction Status Date / Time Tetracyclines Allergy Intermediate Rash/Hives Verified 10/08/20 05:32 Physical Exam Vitals: Vital Signs Temp Pulse Pulse Resp BP BP Pulse Ox 10/08/20 04:38 98.9 F 106 H 20 113/77 95 10/08/20 01:00 71 18 92/62 99 Intake and Output 10/08/20 10/08/20 10/08/20 06:59 14:59 22:59 Other: Weight 63.4 kg General: non toxic, no distress, appears at stated age, normal weight Derm: no unusual rashes/lesions no unusual ecchymoses, warm, dry Head: atraumatic, normocephalic, symmetric Eyes: EOMI, no lid lag, anicteric sclera, pupils equal round reactive to light ENT: Nose and ears atraumatic, no thrush, no pharyngeal erythema Neck: No thyromegaly, no cervical lymphadenopathy, trachea midline, supple Mouth: no lip lesion, mucus membranes moist Cardiovascular: S1S2 reg, no murmur, positive posterior tibial pulse bilateral, no edema, capillary refill less than 2 seconds Lungs: CTA bilateral, no rhonchi, no rales , no accessory muscle use Abdominal: soft, nontender to palpation, no guarding, no appreciable organomegaly, normal bowel sounds Ext: no gross muscle atrophy, muscle strength 5 out of 5 in all 4 extremities grossly, no contractures, Neuro: CN II-XI grossly intact, light touch intact all 4 extremities, finger to nose within normal limits, Psych: Alert, oriented, depressed affect Results CBC & Chem 7: 10/08/20 07:31 10/08/20 07:31 Labs: Abnormal Lab Results - Last 24 Hours (Table) 10/07/20 10/08/20 10/08/20 Range/Units 22:13 07:31 07:31 WBC 12.3 H (3.8-10.6) k/uL Neutrophils # 7.8 H (1.3-7.7) k/uL Chloride 110 H (98-107) mmol/L Glucose 106 H (74-99) mg/dL Osmolality (280-301) mosm/kg LDL Cholesterol, Calc 114 H (0-99) mg/dL 10/08/20 Range/Units 07:31 WBC (3.8-10.6) k/uL Neutrophils # (1.3-7.7) k/uL Chloride 111 H (98-107) mmol/L Glucose 104 H (74-99) mg/dL Osmolality 306 H (280-301) mosm/kg LDL Cholesterol, Calc (0-99) mg/dL Assessment and Plan Plan: Consumption of isopropyl alcohol -Patient's anion gap normal Tobacco marijuana abuse -Advised on importance of cessation Leukocytosis -Likely due to acute stressor -No sign of active infection at this time Depression and suicidal ideation -As per psychiatry Thank you for allowing us to participate in the care of this patient. We will follow peripherally. Do not hesitate to contact us with questions. Someone can be reached from the [facility] hospitalist group at all hours of the day at [phone].
[2020-10-09] MEDS: LORazepam 1 MG TAB PO PRN ×2 (07:54→18:17)
[2020-10-09] MEDS: ESCITALOPRAM 10 MG TAB PO SCH (09:01)
[2020-10-09] MEDS: ARIPiprazole 5 MG TAB PO SCH (09:01)
[2020-10-09] MEDS: NICOTINE 14MG/24HR PATCH TRANSDERM SCH (09:17)
[2020-10-09] MEDS ORDERED: QUEtiapine 100 MG TAB PO PRN (11:07)
[2020-10-09] MEDS: haloperidoL 5 MG TAB PO PRN (13:31)
--- NOTE | 2020-10-09 13:31 | P.PN ---
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 She she described continued feelings of depression with hopelessness, helplessness and worthlessness. She also described tension, anxiety and impaired sleep with initial and middle insomnia. She attended therapeutic groups today and the therapist noted that she appears depressed and tearful and withdrawn. Nursing reported that she slept 7 hours last night. Medical consultation appreciated. Mental status exam: She presented as a thin 30-year-old female who was pleasant on approach. She made eye contact and appeared to attend to the interview. She is sad facial expression and cried throughout the interview. She had psychomotor retardation but no abnormal movements. Her speech was spontaneous with decreased rate, rhythm and volume. Her affect was depressed and not reactive. She again expressed suicidal ideation and wishes. She feels hopeless, helpless and worthless. She continues to ruminate about her illness and her impairment. She did not express such psychotic symptoms as ideas reference, paranoid ideation or delusions. Her thinking was concrete but her associations were goal-directed. She denied hallucinations did not appear to be responding to internal stimuli. Assessment: She is seriously mentally ill and mentally improve from admission. She continues to have signs and symptoms of major depressive disorder complicated by suicidal ideation. Plan: Continue inpatient treatment. Safety precautions. Continue Abilify 5 mg daily and Lexapro 10 mg daily. Begin Seroquel 100 mg at bedtime when necessary for sleep. Continue Haldol and Ativan IM/by mouth for agitation, acute anxiety or acute psychosis. Habitrol for smoking cessation. Encourage participation in therapeutic groups and activities. Evaluate clinical status response to treatment daily basis.
[2020-10-10] MEDS: ESCITALOPRAM 10 MG TAB PO SCH (08:02)
[2020-10-10] MEDS: ARIPiprazole 5 MG TAB PO SCH (08:02)
[2020-10-10] MEDS: NICOTINE 14MG/24HR PATCH TRANSDERM SCH (08:02)
[2020-10-10] MEDS: LORazepam 1 MG TAB PO PRN ×2 (08:03→16:42)
[2020-10-10] MEDS ORDERED: ARIPiprazole 5 MG TAB PO STA (09:35)
--- NOTE | 2020-10-10 10:36 | P.PN ---
Progress Note - Text Progress Note Date: 10/10/20 Interval History: Patient was seen resting in bed and was directable and agreeable to speak with technical publications writer in the office. Patient continues endorse significant symptoms of depression. She is tearful throughout the interview. The patient endorses excessive amounts of guilt, low self-esteem, feelings of worthlessness, helplessness, and hopelessness. She reports sleep continues to be very poor. She reports low appetite. She is currently not endorsing any suicidal or homici amy ideation, intention, and/or plan. She is not reporting any paranoia or delusions. She is denying any auditory or visual hallucinations. She has been adherent with her medications and is not reporting any significant side effects. Mental Status Exam: General Appearance: Patient appears to be stated age is alert, directable, and cooperative. Slightly disheveled. Tall and thin build. Behavior: Patient is calmly seated without any agitated behavior. Patient is tearful throughout the interview. Eye contact is appropriate. Speech: Patient's speech is fluent and nonpressured. Spontaneous, with normal rate, tone, volume and fluency. Mood/Affect: Mood is very depressed, affect is congruent and sad and tearful Suicidality/Homicidality: Patient denies having any suicidal or homicidal id eation intent or plan. Perceptions: Patient denies any visual hallucinations and denies any auditory hallucinations Though content/process: Dysphoric thought content. Very melancholic. Thought p rocess otherwise appears to be linear. Memory and concentration: AOX3, grossly intact for the purposes of this session Judgment and insight: Improving mildly Assessment Major depressive disorder, recurrent, severe Plan: -Patient continues to meet criteria for inpatient psychiatric admission for symptom stabilization and safety. Patient has signed adult voluntary form and medication consent and was placed in patient's chart. -Medications: Increase Lexapro to 20 mg by mouth daily for major depression Increase Abilify to 10 mg by mouth daily for mood augmentation Start Remeron 7.5 mg by mouth at bedtime for depression/insomnia/low appetite Discontinue Seroquel -When necessary Ativan and Haldol for agitation/aggression. -NRT - nicotine patch -SW on board for discharge planning. Encouraged the patient to participate in milieu.
[2020-10-10] MEDS: ACETAMINOPHEN TAB 325 MG TAB PO PRN ×2 (12:59→21:16)
[2020-10-10] MEDS: haloperidoL 5 MG TAB PO PRN (16:42)
[2020-10-10] MEDS ORDERED: MIRTAZAPINE 15 MG TAB PO SCH (21:00)
[2020-10-11] MEDS: LORazepam 1 MG TAB PO PRN ×2 (01:53→16:32)
[2020-10-11] MEDS: NICOTINE 14MG/24HR PATCH TRANSDERM SCH (08:51)
[2020-10-11] MEDS: ESCITALOPRAM 20 MG TAB PO SCH (08:52)
[2020-10-11] MEDS: ARIPiprazole 10 MG TAB PO SCH (08:52)
[2020-10-11] MEDS: haloperidoL 5 MG TAB PO PRN (09:23)
--- NOTE | 2020-10-11 10:56 | P.PN ---
Progress Note - Text Progress Note Date: 10/11/20 Interval History: Patient was seen attending group and was directable and agreeable to speak with job specification writer in the office. Patient continues endorse significant symptoms of depression. She continues to be tearful throughout the interview. The patient reports that she had difficulty sleeping last night due to "tossing and turning." The patient states that she continues to run and negative dialogue in her head and is endorsing excessive amounts of guilt, low self-esteem, and feelings of worthlessness. She is currently not reporting any suicidal or homicidal ideation, intention, and/or plan. She denies any auditory or visual hallucinations. She denies any paranoia or delusions. She does report that her appetite has improved. She has been participating more in group and has been out of her room more. She has been adherent with her medications and is not reporting any significant side effects at this time. Mental Status Exam: General Appearance: Patient appears to be stated age is alert, directable, and cooperative. Slightly disheveled. Tall and thin build. Behavior: Patient is calmly seated without any agitated behavior. Patient continues to be tearful throughout the interview. Eye contact is appropriate. Speech: Patient's speech is fluent and nonpressured. Spontaneous, with normal rate, tone, volume and fluency. Mood/Affect: Mood is very depressed, affect is congruent and sad and tearful Suicidality/Homicidality: Patient denies having any suicidal or homicidal ideation intent or plan. Perceptions: Patient denies any visual hallucinations and denies any auditory hallucinations Though content/process: Patient continues to endorse dysphoric and melancholic thought content. Thought process appears to be linear. Memory and concentration: AOX3, grossly intact for the purposes of this session Judgment and insight: Improving mildly Assessment Major depressive disorder, recurrent, severe Plan: -Patient continues to meet criteria for inpatient psychiatric admission for symptom stabilization and safety. Patient has signed adult voluntary form and medication consent and was placed in patient's chart. -Medications: Continue Lexapro 20 mg by mouth daily for major depression Continue Abilify 10 mg by mouth daily for mood augmentation Increase Remeron to 15 mg by mouth at bedtime for depression/insomnia/low appetite Discontinue Seroquel -When necessary Ativan and Haldol for agitation/aggression. -NRT - nicotine patch -SW on board for discharge planning. Encouraged the patient to participate in milieu.
[2020-10-11] MEDS: MIRTAZAPINE 15 MG TAB PO SCH (21:01)
[2020-10-12] MEDS: NICOTINE 14MG/24HR PATCH TRANSDERM SCH (08:36)
[2020-10-12] MEDS: ARIPiprazole 10 MG TAB PO SCH (08:36)
[2020-10-12] MEDS: ESCITALOPRAM 20 MG TAB PO SCH (08:36)
[2020-10-12] MEDS: LORazepam 1 MG TAB PO PRN ×2 (08:39→20:01)
--- NOTE | 2020-10-12 10:44 | P.PN ---
Progress Note - Text Progress Note Date: 10/12/20 Interval History: Patient was seen in her room and was directable and agreeable to speak with the fiction and nonfiction writer prose. The patient is reporting that she is feeling better today. She states that her depression and anxiety have slightly improved but continued to be present. She reports that she is less tearful. She states that her sleep improved last night but she continues to have some tossing and turning. She does not report any suicidal or homicidal ideation, intention, and/or plan today. She is denying any auditory or visual hallucinations. She denies any paranoia or delusions. She reports her appetite has improved as well. She states that she is able to speak with her last night and this has helped her feel better. Mental Status Exam: General Appearance: Patient appears to be stated age is alert, directable, and cooperative. Slightly disheveled. Tall and thin build. Behavior: Patient is calmly seated without any agitated behavior. Patient is not tearful during the interview. Eye contact is appropriate. Speech: Patient's speech is fluent and nonpressured. Spontaneous, with normal rate, tone, volume and fluency. Mood/Affect: Mood is feeling better. Affect is congruent and euthymic. Suicidality/Homicidality: Patient denies having any suicidal or homicidal ideation intent or plan. Perceptions: Patient denies any visual hallucinations and denies any auditory hallucinations Though content/process: Thought process appears to be linear and logical. Thought content is devoid of suicidal or homicidal ideation, intention, and/or plan. No delusional thought content endorsed. Memory and concentration: AOX3, grossly intact for the purposes of this session Judgment and insight: Improving mildly Assessment Major depressive disorder, recurrent, severe Plan: -Patient continues to meet criteria for inpatient psychiatric admission for symptom stabilization and safety. Patient has signed adult voluntary form and medication consent and was placed in patient's chart. -Medications: Continue Lexapro 20 mg by mouth daily for major depression Continue Abilify 10 mg by mouth daily for mood augmentation Continue Remeron 15 mg by mouth at bedtime for depression/insomnia/low appetite -When necessary Ativan and Haldol for agitation/aggression. -NRT - nicotine patch -SW on board for discharge planning. Encouraged the patient to participate in milieu.
[2020-10-12] MEDS: haloperidoL 5 MG TAB PO PRN (13:35)
[2020-10-12] MEDS: MIRTAZAPINE 15 MG TAB PO SCH (20:01)
[2020-10-13] MEDS: ESCITALOPRAM 20 MG TAB PO SCH (08:37)
[2020-10-13] MEDS: ARIPiprazole 10 MG TAB PO SCH (08:37)
[2020-10-13] MEDS: NICOTINE 14MG/24HR PATCH TRANSDERM SCH (08:37)
[2020-10-13] MEDS: LORazepam 1 MG TAB PO PRN ×3 (08:40→20:48)
--- NOTE | 2020-10-13 10:37 | P.PN ---
Progress Note - Text Progress Note Date: 10/13/20 Interval History: Patient was seen in her room and was directable and agreeable to speak with the specification writer. The patient states that she is doing well. She reports significant improvement in terms of her mood. She states that she was able to sleep well last night. She denies any issues with appetite. She is currently not reporting any suicidal or homicidal ideation, intention, and/or plan. She denies any auditory or visual hallucinations. She denies any paranoia or de lusions. She has been adherent with the medications and is not reporting any significant side effects at this time. The patient was counseled on her medications and the need for regular compliance. The patient reports that she is feeling ready for discharge tomorrow. Mental Status Exam: General Appearance: Patient appears to be stated age is alert, directable, and cooperative. Slightly disheveled. Tall and thin build. Behavior: Patient is calmly seated without any agitated behavior. Eye contact is appropriate. Speech: Patient's speech is fluent and nonpressured. Spontaneous, with normal rate, tone, volume and fluency. Mood/Affect: Mood is feeling better. Affect is congruent and euthymic. Appropriate range of affect. Suicidality/Homicidality: Patient denies having any suicidal or homicidal ideation intent or plan. Perceptions: Patient denies any visual hallucinations and denies any auditory hallucinations Though content/process: Thought process appears to be linear and logical. Thought content is devoid of suicidal or homicidal ideation, intention, and/or plan. No delusional thought content endorsed. Memory and concentration: AOX3, grossly intact for the purposes of this session Judgment and insight: Improving mildly Assessment Major depressive disorder, recurrent, severe Plan: -Patient continues to meet criteria for inpatient psychiatric admission for symptom stabilization and safety. Patient has signed adult voluntary form and medication consent and was placed in patient's chart. -Medications: Continue Lexapro 20 mg by mouth daily for major depression Continue Abilify 10 mg by mouth daily for mood augmentation Continue Remeron 15 mg by mouth at bedtime for depression/insomnia/low appetite -When necessary Ativan and Haldol for agitation/aggression. -NRT - nicotine patch -SW on board for discharge planning. Encouraged the patient to participate in milieu. -Anticipate discharge tomorrow.
[2020-10-13] MEDS: ACETAMINOPHEN TAB 325 MG TAB PO PRN (16:47)
[2020-10-13] MEDS: haloperidoL 5 MG TAB PO PRN (16:48)
[2020-10-13] MEDS: MIRTAZAPINE 15 MG TAB PO SCH (20:47)
[2020-10-14 06:37] VITALS: BP 113/80; PULSE 88; RESP 18
[2020-10-14] MEDS: NICOTINE 14MG/24HR PATCH TRANSDERM SCH (08:04)
[2020-10-14] MEDS: ESCITALOPRAM 20 MG TAB PO SCH (08:04)
[2020-10-14] MEDS: ARIPiprazole 10 MG TAB PO SCH (08:04)
[2020-10-14] MEDS: LORazepam 1 MG TAB PO PRN (09:22)
[2020-10-14 09:49] VITALS: TEMP 97.7
--- NOTE | 2020-10-14 11:38 | P.DS ---
Providers Date of admission: 10/08/20 04:35 Expected date of discharge: 10/14/20 Attending physician: Reilly Brooks MD Consults: 10/08/20 04:57 Consult Physician Routine Consulting Provider: Armen Busch Consult Reason/Comments: H & P Do you want consulting provider notified?: Already Contacted Primary care physician: Stated None - Discharge Diagnosis(es) (1) Major depressive disorder Current Visit: Yes Status: Acute Priority: High (2) Nicotine dependence Current Visit: Yes Status: Chronic Priority: Medium Hospital Course: Admission HPI: Initial psychiatric evaluation was completed by Dr Okeefe on 10/08/2020 who wrote: "She is a 30-year-old female admitted to psychiatric unit involuntarily following a attempted overdose with isopropyl alcohol. She was evaluated and cleared in the emergency room. Her urine toxicology was positive for acetone and her serum osmolality was elevated at 327. She did not develop widening anion gap suggestive of isopropyl alcohol poisoning. This was difficult interview in that she cried or sobbed throughout the interview. She talked about feeling bad and expressed frustration that she cannot explain why she is feeling so bad. She made such comments as "they keep asking me what's wrong but I can't tell them because I don't know." [facility] and treated for a recurrent major depressive disorder. She withdrew from treatment and stopped her psychotropic medications that included Abilify maintaining a compound Lexapro and Ativan. She appeared unable to explain the reason for discontinuing treatment. She described feeling depressed and struggling with thoughts of suicide. She admitted to impairment in energy, concentration, appetite and ability to enjoy herself. She alleged that she was able to take care of her children and her home. Apparently her [id number]'s assists her. On the day of admission she drank 1-2 "shots" affect isopropyl alcohol in addition to [place] alcohol. When I asked her if she had drank the isopropyl alcohol thinking that he'll end her life she sobbed that she "does not know." I was unable to obtain a clear history of elevated mood or sustained irritability suggestive of donna or hypomania. She did not endorse psychotic symptoms such as auditory, visual or olfactory hallucinations, ideas reference, thought insertion, thought broadcasting or thought control. She was vague about her alcohol use and complained that "everybody knows that Sh[place]onne can't drink."" Hospital course: Upon admission to the unit patient was initially presenting with significant symptoms of depression including impairment in energy, concentration, appetite, and the ability to enjoy herself. Furthermore, on the mental status exam, the patient was noted to have a sad facial expression, crying and sobbing throughout the interview, with a markedly depressed affect. The patient did endorse suicidal ideation and wishes. The patient was started on Abilify and Lexapro for management of major depressive disorder. Seroquel was added as an as needed medication due to insomnia. The patient was then transferred to the care of Dr Brooks. The patient's Lexapro and Abilify were titrated to their final doses and the seroquel was discontinued and replaced with remeron. Over the course of the hospitalization, the patient gradually improved in terms of her depressive symptoms. She became more spontaneous and had an increase in affect. She began participating in group and milieu activities. She was evaluated by medicine and was medically cleared. She was adherent with her medications and reported no significant side effects. On the day of discharge, the patient is not reporting any suicidal or homicidal ideation, intention, and/or plan. She denies any access to firearms or other weapons. She reports no auditory or visualizations. She denies any paranoia or other delusions. The patient reports that she was able to speak with her and is agreeable to continue treatment for the management of depression. The patient's affect is greatly improved and the patient is not crying every day as she was prior to this admission. The patient does not have a significant history of substance abuse however was counseled on abstaining from all substances including alcohol and marijuana. The patient was counseled on medications and the need for regular compliance and was encouraged to follow-up with her outpatient providers for mental health and for primary care. Prior to discharge, family meeting will be arranged by the protective services social worker to answer any questions and ensure safety. Mental Status Exam: General Appearance: Patient appears to be stated age is alert, directable, and cooperative. Slightly disheveled. Tall and thin build. Behavior: Patient is calmly seated without any agitated behavior. Eye contact is appropriate. Speech: Patient's speech is fluent and nonpressured. Spontaneous, with normal rate, tone, volume and fluency. Mood/Affect: Mood is "feeling good and ready to go." Affect is congruent and euthymic. Appropriate range of affect. Suicidality/Homicidality: Patient denies having any suicidal or homicidal ideation intent or plan. Perceptions: Patient denies any visual hallucinations and denies any auditory hallucinations Though content/process: Thought process appears to be linear and logical. Thought content is devoid of suicidal or homicidal ideation, intention, and/or plan. No delusional thought content endorsed. Memory and concentration: AOX3, grossly intact for the purposes of this session Judgment and insight: Improved Impression: Major Depressive Disorder, recurrent, severe Nicotine Dependence Plan: -Continue with discharge today as patient has improved and stabilized psychiatrically and is not currently an imminent threat to himself and/or others. Patient will remain at chronically elevated risk for harm to self and/or others due to her prior attempts at suicide. -Continue medications: Lexapro 20 mg by mouth daily for depression/anxiety Remeron 15 mg by mouth at bedtime for depression/insomnia/appetite Abilify 10 mg by mouth daily for mood augmentation Nicotine replacement therapy patches. -Patient was counseled on the need for medication compliance and appropriate f ollow-up at mental health and also primary care for medical issues. Patient verbalized understanding and agreed. -Social work to arrange for and conduct family meeting to ensure safety upon discharge and answer any questions/concerns. Social work also to arrange for patients follow up appointments with [facility] for psychiatric care along with follow up with primary care provider. -Patient counseled on abstaining from recreational drugs and marijuana and alcohol. Was informed/educated on the adverse effects on their physical and mental health. Patient verbally agreed and understood. -Patient was instructed to return to the hospital or seek immediate medical care if their psychiatric or medical symptoms do worsen or reoccur. -Psychoeducation and supportive therapy provided to patient. Risks and benefits of pharmacological treatment versus the risks and benefits of nontreatment weight and discussed. Informed consent discussion held. Common side effects of psychotropics discussed such as, but not limited to headache, GI disturbance, sexual dysfunction, movement disorders, sedation, and orthostatic hypotension. Life threatening and blackbox warnings of prescribed medications also discussed. Potential risks of operating a vehicle or heavy machinery discussed with patient at length. Advised on importance of compliance and a reliable and responsible manner. Patient advised to review FDA consumer labeling of all medications prior to taking. Patient verbalized understanding of potential risks, and agrees with current treatment plan. Patient advised to medically contact physician/emergency personnel if any acute changes in condition occur. Allergies Allergy/AdvReac Type Severity Reaction Status Date / Time Tetracyclines Allergy Intermediate Rash/Hives Verified 10/08/20 05:32 Laboratory Results WBC 12.3 k/uL (3.8-10.6) H 10/08/20 07:31 RBC 4.31 m/uL (3.80-5.40) 10/08/20 07:31 Hgb 13.5 gm/dL (11.4-16.0) 10/08/20 07:31 Hct 40.8 % (34.0-46.0) 10/08/20 07:31 MCV 94.7 fL (80.0-100.0) 10/08/20 07:31 MCH 31.3 pg (25.0-35.0) 10/08/20 07:31 MCHC 33.1 g/dL (31.0-37.0) 10/08/20 07:31 RDW 11.7 % (11.5-15.5) 10/08/20 07:31 Plt Count 313 k/uL (150-450) 10/08/20 07:31 MPV 6.6 10/08/20 07:31 Neutrophils % 64 % 10/08/20 07:31 Lymphocytes % 30 % 10/08/20 07:31 Monocytes % 4 % 10/08/20 07:31 Eosinophils % 0 % 10/08/20 07:31 Basophils % 1 % 10/08/20 07:31 Neutrophils # 7.8 k/uL (1.3-7.7) H 10/08/20 07:31 Lymphocytes # 3.7 k/uL (1.0-4.8) 10/08/20 07:31 Monocytes # 0.5 k/uL (0-1.0) 10/08/20 07:31 Eosinophils # 0.1 k/uL (0-0.7) 10/08/20 07:31 Basophils # 0.1 k/uL (0-0.2) 10/08/20 07:31 PT 10.3 sec (9.0-12.0) 10/07/20 17:12 INR 1.0 (<1.2) 10/07/20 17:12 Sodium 139 mmol/L (137-145) 10/08/20 07:31 Potassium 3.7 mmol/L (3.5-5.1) 10/08/20 07:31 Chloride 111 mmol/L (98-107) H 10/08/20 07:31 Carbon Dioxide 22 mmol/L (22-30) 10/08/20 07:31 Anion Gap 6 mmol/L 10/08/20 07:31 BUN 7 mg/dL (7-17) 10/08/20 07:31 Creatinine 0.63 mg/dL (0.52-1.04) 10/08/20 07:31 Est GFR (CKD-EPI)AfAm >90 (>60 ml/min/1.73 sqM) 10/08/20 07:31 Est GFR (CKD-EPI)NonAf >90 (>60 ml/min/1.73 sqM) 10/08/20 07:31 Glucose 104 mg/dL (74-99) H 10/08/20 07:[address] Glu mg/dL 97 10/08/20 07:31 Hemoglobin A1c 5.0 % (4.0-6.0) 10/08/20 07:31 Osmolality 306 mosm/kg (280-301) H 10/08/20 07:31 Calcium 8.9 mg/dL (8.4-10.2) 10/08/20 07:31 Phosphorus 3.1 mg/dL (2.5-4.5) 10/07/20 17:12 Magnesium 1.9 mg/dL (1.6-2.3) 10/08/20 07:31 Total Bilirubin 0.5 mg/dL (0.2-1.3) 10/08/20 07:31 Conjugated Bilirubin 0.0 mg/dL (0.0-0.3) 10/08/20 07:31 Unconjugated Bilirubin 0.3 mg/dL (0.0-1.1) 10/08/20 07:31 Delta Bilirubin 0.2 mg/dL (0.0-0.2) 10/08/20 07:31 AST 18 U/L (14-36) 10/08/20 07:31 ALT 13 U/L (4-34) 10/08/20 07:31 Alkaline Phosphatase 49 U/L (38-126) 10/08/20 07:31 Creatine Kinase 91 U/L (30-135) 10/07/20 17:12 Total Protein 7.0 g/dL (6.3-8.2) 10/08/20 07:31 Albumin 3.8 g/dL (3.5-5.0) 10/08/20 07:31 Triglycerides 69 mg/dL (<150) 10/08/20 07:31 Cholesterol 175 mg/dL (<200) 10/08/20 07:31 LDL Cholesterol, Calc 114 mg/dL (0-99) H 10/08/20 07:31 HDL Cholesterol 47 mg/dL (40-60) 10/08/20 07:31 TSH 0.847 mIU/L (0.465-4.680) 10/08/20 07:31 Urine HCG, Qual Not Detected (Not Detectd) 10/07/20 17:12 Salicylates <1.0 mg/dL 10/07/20 17:12 Urine Opiates Screen Not Detected (NotDetected) 10/07/20 17:12 Ur Oxycodone Screen Not Detected (NotDetected) 10/07/20 17:12 Urine Methadone Screen Not Detected (NotDetected) 10/07/20 17:12 Ur Propoxyphene Screen Not Detected (NotDetected) 10/07/20 17:12 Acetaminophen <10.0 ug/mL 10/07/20 17:12 Ur Barbiturates Screen Not Detected (NotDetected) 10/07/20 17:12 U Tricyclic Antidepress Not Detected (NotDetected) 10/07/20 17:12 Ur Phencyclidine Scrn Not Detected (NotDetected) 10/07/20 17:12 Ur Amphetamines Screen Not Detected (NotDetected) 10/07/20 17:12 U Methamphetamines Scrn Not Detected (NotDetected) 10/07/20 17:12 U Benzodiazepines Scrn Not Detected (NotDetected) 10/07/20 17:12 Urine Cocaine Screen Not Detected (NotDetected) 10/07/20 17:12 U Marijuana (THC) Screen Detected (NotDetected) H 10/07/20 17:12 Serum Alcohol <10 mg/dL 10/07/20 17:12 Acetone, Qual Positive (Negative) 10/07/20 17:12 Coronavirus (PCR) Not Detected (Not Detectd) 10/08/20 00:51 Vital Signs Temp 97.7 F 10/14/20 08:00 Pulse 88 10/14/20 06:35 Resp 18 10/14/20 06:35 BP 113/80 10/14/20 06:35 Pulse Ox 98 10/14/20 06:35 Intake & Output 10/13/20 10/14/20 10/14/20 18:59 06:59 18:59 Weight 63 kg Patient Condition at Discharge: Stable Plan - Discharge Summary Discharge Rx Participant: No New Discharge Prescriptions: New ARIPiprazole [Abilify] 10 mg PO DAILY 30 Days tab Nicotine 14Mg/24Hr Patch [Habitrol] 1 patch TRANSDERM DAILY 30 Days patch Mirtazapine [Remeron] 15 mg PO HS 30 Days tab Continue Escitalopram [Lexapro] 20 mg PO DAILY 30 Days tab Discontinued lamoTRIgine [LaMICtal] 200 mg PO HS Gabapentin [Neurontin] 100 mg PO QID Discharge Medication List ARIPiprazole [Abilify] 10 mg PO DAILY 30 Days tab 10/14/20 [Rx] Escitalopram [Lexapro] 20 mg PO DAILY 30 Days tab 10/14/20 [Rx] Mirtazapine [Remeron] 15 mg PO HS 30 Days tab 10/14/20 [Rx] Nicotine 14Mg/24Hr Patch [Habitrol] 1 patch TRANSDERM DAILY 30 Days patch 10/14/20 [Rx] Follow up Appointment(s)/Referral(s): [facility] [Outside] - 10/16/20 10:00 am (10-16-20 @ 10:00 with BASILIO Fan at [facility] office 10-17-20 @ 2:00 with Carolina Delgado at [facility] office) [facility] [NON-STAFF] - 1 Week Patient Instructions/Handouts: Depression (DC) Activity/Diet/Wound Care/Special Instructions: Activity and diet as tolerated. Avoid the use of street drugs and alcohol. Take all medications as prescribed. When you are in need of refills on your medications please contact your medical provider and/or outpatient psychiatrist to have this done. Please go to scheduled outpatient appointment for aftercare treatment. If symptoms return or become worse, call the crisis line at and/or go to the nearest emergency room for evaluation. Discharge Disposition: HOME SELF-CARE
== END 2020-10-14 11:20 | disposition home or self-care (01) | DRG 885 ==
LOC: EC 16:39 → 3MHU 10-08 04:35
PROVIDERS: ADMIT Psychiatry & Neurology Psychiatry; ATTEND Psychiatry & Neurology Psychiatry
DX: F33.2 Major depressive disorder, recurrent severe without psychotic features (principal); D72.829 Elevated white blood cell count, unspecified; F10.21 Alcohol dependence, in remission; F12.10 Cannabis abuse, uncomplicated; T51.2X1A Toxic effect of 2-Propanol, accidental (unintentional), initial encounter; Z20.822 Contact with and (suspected) exposure to COVID-19; F43.10 Post-traumatic stress disorder, unspecified; G47.00 Insomnia, unspecified; F17.210 Nicotine dependence, cigarettes, uncomplicated; Z71.6 Tobacco abuse counseling; Z79.899 Other long term (current) drug therapy; Z91.5 Personal history of self-harm; Z88.1 Allergy status to other antibiotic agents; Z82.49 Family history of ischemic heart disease and other diseases of the circulatory system; Z81.1 Family history of alcohol abuse and dependence; Z83.79 Family history of other diseases of the digestive system; Z81.8 Family history of other mental and behavioral disorders
CPT/HCPCS: 36415; 80048; 80053; 80061; 80076; 80143; 80179; 80306; 80320; 81025; 82009; 82075; 82550; 83036; 83735; 83930; 84100; 84443; 85025; 85610; 87635; 93005; 96361; 96374; 96375; 99285

== ENCOUNTER 2022-06-03 15:40 | Observation (INO) | payer OTHER ==
--- NOTE | 2022-06-03 15:52 | ED ---
Alcohol HPI - General Stated Complaint: ETOH Time Seen by Provider: 06/03/22 15:41 Source: patient, EMS, RN notes reviewed Mode of arrival: EMS - History of Present Illness Initial Comments: 31-year-old female history of bipolar disorder history of alcohol abuse who was brought in by EMS with complaints of stumbling around at home. Apparently the patient's saw her on security cameras at home walking around the backyard with no). She was noted be stumbling around. She did ultimately come into the emergency department by paramedics. She has no complaints she states she normally only drinks 2 and half cans of beer per day. Per paramedics there were a lot of beer cans around the residence. No reports of any headache dizziness blurry vision nausea vomiting pain no trauma reported. MD Complaint: alcohol intoxication - Related Data Home Medications Medication Instructions Recorded Confirmed ARIPiprazole [Abilify] 2 mg PO DAILY 06/03/22 06/03/22 Gabapentin [Neurontin] 100 mg PO TID 06/03/22 06/03/22 Melatonin 2 mg PO HS 06/03/22 06/03/22 Naltrexone HCl [Revia] 50 mg PO DAILY 06/03/22 06/03/22 QUEtiapine FUMARATE [SEROquel XR] 400 mg PO HS 06/03/22 06/03/22 Previous Rx's Medication Instructions Recorded Escitalopram [Lexapro] 20 mg PO DAILY 30 Days tab 10/14/20 Allergies Allergy/AdvReac Type Severity Reaction Status Date / Time Tetracyclines Allergy Intermediate Rash/Hives Verified 06/03/22 16:10 Review of Systems ROS Statement: Those systems with pertinent positive or pertinent negative responses have been documented in the HPI. ROS Other: All systems not noted in ROS Statement are negative. Past Medical History Past Medical History: No Reported History Additional Past Medical History / Comment(s): Current self-inflicted lacerations to anterior bilat. forearms with sutures. History of Any Multi-Drug Resistant Organisms: None Reported Past Surgical History: No Surgical Hx Reported Past Anesthesia/Blood Transfusion Reactions: No Reported Reaction Additional Past Anesthesia/Blood Transfusion Reaction / Comment(s): Pt. had 2 Epidurals with childbirth without any reaction but has had no other types of anesthesia or blood transfusions. Past Psychological History: Depression Smoking Status: Current every day smoker Past Alcohol Use History: None Reported Past Drug Use History: Marijuana - Past Family History Mother Family Medical History: Congestive Heart Failure (CHF), Liver Disease Additional Family Medical History / Comment(s): Pt. states her mother abused alcohol and at the age of 42 y.o. from CHF and Cirrhosis of the liver due to the sub. abuse. General Exam - General Exam Comments Initial Comments: This a well-developed well-nourished awake alert somewhat lethargic female with a smell of alcohol conjoiners on her breath General appearance: alert, anxious, lethargic Head exam: Present: atraumatic, normocephalic, normal inspection Eye exam: Present: normal appearance, PERRL, EOMI. Absent: scleral icterus, conjunctival injection, periorbital swelling ENT exam: Present: normal exam, mucous membranes moist Neck exam: Present: normal inspection, full ROM, other (No stridor JVD or bruits). Absent: tenderness, meningismus, lymphadenopathy Respiratory exam: Present: normal lung sounds bilaterally. Absent: respiratory distress, wheezes, rales, rhonchi, stridor Cardiovascular Exam: Present: regular rate, normal rhythm, normal heart sounds. Absent: systolic murmur, diastolic murmur, rubs, gallop, clicks GI/Abdominal exam: Present: soft, normal bowel sounds. Absent: distended, tenderness, guarding, rebound, rigid Extremities exam: Present: normal inspection, full ROM, normal capillary refill. Absent: tenderness, pedal edema, joint swelling, calf tenderness Back exam: Present: normal inspection Neurological exam: Present: alert, oriented X3, CN II-XII intact Psychiatric exam: Present: normal mood, flat affect Skin exam: Present: warm, dry, intact, normal color. Absent: rash Course Vital Signs 06/03/22 16:01 Temperature 97.7 F Pulse Rate 84 Respiratory 16 Rate Blood Pressure 117/79 O2 Sat by Pulse 96 Oximetry Medical Decision Making - Medical Decision Making Patient is a have evidence of alcohol intoxication concern for withdrawal patient be admitted did discuss case with Sheri frederick for Dr. Hoff. Patient will be placed on the alcohol withdrawal protocol - Lab Data Result diagrams: 06/03/22 16:26 06/03/22 16:26 Lab Results 06/03/22 06/03/22 06/03/22 Range/Units 15:56 15:56 16:26 WBC 13.7 H (3.8-10.6) k/uL RBC 4.77 (3.80-5.40) m/uL Hgb 15.4 (11.4-16.0) gm/dL Hct 44.6 (34.0-46.0) % MCV 93.5 (80.0-100.0) fL MCH 32.4 (25.0-35.0) pg MCHC 34.6 (31.0-37.0) g/dL RDW 12.3 (11.5-15.5) % Plt Count 313 (150-450) k/uL MPV 7.8 Neutrophils % 70 % Lymphocytes % 24 % Monocytes % 3 % Eosinophils % 1 % Basophils % 1 % Neutrophils # 9.6 H (1.3-7.7) k/uL Lymphocytes # 3.2 (1.0-4.8) k/uL Monocytes # 0.5 (0-1.0) k/uL Eosinophils # 0.2 (0-0.7) k/uL Basophils # 0.1 (0-0.2) k/uL Sodium (137-145) mmol/L Potassium (3.5-5.1) mmol/L Chloride (98-107) mmol/L Carbon Dioxide (22-30) mmol/L Anion Gap mmol/L BUN (7-17) mg/dL Creatinine (0.52-1.04) mg/dL Est GFR (CKD-EPI)AfAm (>60 ml/min/1.73 sqM) Est GFR (CKD-EPI)NonAf (>60 ml/min/1.73 sqM) Glucose (74-99) mg/dL Calcium (8.4-10.2) mg/dL Magnesium (1.6-2.3) mg/dL Total Bilirubin (0.2-1.3) mg/dL AST (14-36) U/L ALT (4-34) U/L Alkaline Phosphatase (38-126) U/L Creatine Kinase (30-135) U/L Total Protein (6.3-8.2) g/dL Albumin (3.5-5.0) g/dL Lipase (23-300) U/L Urine HCG, Qual Not Detected (Not Detectd) Urine Opiates Screen Not Detected (NotDetected) Ur Oxycodone Screen Not Detected (NotDetected) Urine Methadone Screen Not Detected (NotDetected) Ur Propoxyphene Screen Not Detected (NotDetected) Ur Barbiturates Screen Not Detected (NotDetected) U Tricyclic Antidepress Not Detected (NotDetected) Ur Phencyclidine Scrn Not Detected (NotDetected) Ur Amphetamines Screen Not Detected (NotDetected) U Methamphetamines Scrn Not Detected (NotDetected) U Benzodiazepines Scrn Not Detected (NotDetected) Urine Cocaine Screen Not Detected (NotDetected) U Marijuana (THC) Screen Detected H (NotDetected) Serum Alcohol mg/dL 06/03/22 Range/Units 16:26 WBC (3.8-10.6) k/uL RBC (3.80-5.40) m/uL Hgb (11.4-16.0) gm/dL Hct (34.0-46.0) % MCV (80.0-100.0) fL MCH (25.0-35.0) pg MCHC (31.0-37.0) g/dL RDW (11.5-15.5) % Plt Count (150-450) k/uL MPV Neutrophils % % Lymphocytes % % Monocytes % % Eosinophils % % Basophils % % Neutrophils # (1.3-7.7) k/uL Lymphocytes # (1.0-4.8) k/uL Monocytes # (0-1.0) k/uL Eosinophils # (0-0.7) k/uL Basophils # (0-0.2) k/uL Sodium 148 H (137-145) mmol/L Potassium 4.0 (3.5-5.1) mmol/L Chloride 111 H (98-107) mmol/L Carbon Dioxide 24 (22-30) mmol/L Anion Gap 13 mmol/L BUN 7 (7-17) mg/dL Creatinine 0.73 (0.52-1.04) mg/dL Est GFR (CKD-EPI)AfAm >90 (>60 ml/min/1.73 sqM) Est GFR (CKD-EPI)NonAf >90 (>60 ml/min/1.73 sqM) Glucose 109 H (74-99) mg/dL Calcium 9.3 (8.4-10.2) mg/dL Magnesium 2.3 (1.6-2.3) mg/dL Total Bilirubin 0.3 (0.2-1.3) mg/dL AST 24 (14-36) U/L ALT 18 (4-34) U/L Alkaline Phosphatase 72 (38-126) U/L Creatine Kinase 152 H (30-135) U/L Total Protein 7.9 (6.3-8.2) g/dL Albumin 4.5 (3.5-5.0) g/dL Lipase 111 (23-300) U/L Urine HCG, Qual (Not Detectd) Urine Opiates Screen (NotDetected) Ur Oxycodone Screen (NotDetected) Urine Methadone Screen (NotDetected) Ur Propoxyphene Screen (NotDetected) Ur Barbiturates Screen (NotDetected) U Tricyclic Antidepress (NotDetected) Ur Phencyclidine Scrn (NotDetected) Ur Amphetamines Screen (NotDetected) U Methamphetamines Scrn (NotDetected) U Benzodiazepines Scrn (NotDetected) Urine Cocaine Screen (NotDetected) U Marijuana (THC) Screen (NotDetected) Serum Alcohol 277 H* mg/dL Disposition Clinical Impression: Alcoholic intoxication Disposition: ADMITTED IP TO THIS [facility] Condition: Fair Referrals: None,Stated [Primary Care Provider] - 1-2 days Decision Date: 06/03/22 Decision Time: 18:44
[2022-06-03 16:24] LABS: Amphetamine Screen,Urine Not Detected (NotDetected); Barbiturate Screen,Urine Not Detected (NotDetected); Benzodiazepines Screen,Urine Not Detected (NotDetected); Cocaine Screen,Urine Not Detected (NotDetected); Methadone Screen, Urine Not Detected (NotDetected); Opiate Screen,Urine Not Detected (NotDetected); Oxycodone Screen, Urine Not Detected (NotDetected); Phencyclidine Screen,Urine Not Detected (NotDetected); Tricyclic Antidepressant,Urine Not Detected (NotDetected); Urn Cannabinoid Scrn Detected (NotDetected)
[2022-06-03 17:06] LABS: Basophils # (A) 0.1 k/uL (0-0.2); Basophils % (A) 1 %; Eosinophils # (A) 0.2 k/uL (0-0.7); Eosinophils % (A) 1 %; HCT 44.6 % (34.0-46.0); HGB 15.4 gm/dL (11.4-16.0); Lymphocytes # (A) 3.2 k/uL (1.0-4.8); Lymphocytes % (A) 24 %; MCH 32.4 pg (25.0-35.0); MCHC 34.6 g/dL (31.0-37.0); MCV 93.5 fL (80.0-100.0); Mean Platelet Volume 7.8; Monocytes # (A) 0.5 k/uL (0-1.0); Monocytes % (A) 3 %; Neutrophils # (A) 9.6 k/uL (1.3-7.7); Neutrophils % (A) 70 %; Platelet Count 313 k/uL (150-450); RBC 4.77 m/uL (3.80-5.40); RDW 12.3 % (11.5-15.5); WBC 13.7 k/uL (3.8-10.6)
[2022-06-03 17:17] LABS: ALT 18 U/L (4-34); AST 24 U/L (14-36); African American GFR (CKD) >90 (>60 ml/min/1.73 sqM); Albumin 4.5 g/dL (3.5-5.0); Alkaline Phosphatase 72 U/L (38-126); Anion Gap 13 mmol/L; Blood Urea Nitrogen 7 mg/dL (7-17); Calcium 9.3 mg/dL (8.4-10.2); Carbon Dioxide 24 mmol/L (22-30); Chloride 111 mmol/L (98-107); Creatine Kinase 152 U/L (30-135); Glucose 109 mg/dL (74-99); Lipase 111 U/L (23-300); Magnesium 2.3 mg/dL (1.6-2.3); Non-African American GFR(CKD) >90 (>60 ml/min/1.73 sqM); Sodium 148 mmol/L (137-145); Total Bilirubin 0.3 mg/dL (0.2-1.3); Total Protein 7.9 g/dL (6.3-8.2)
[2022-06-03 17:21] LABS: Alcohol 277 mg/dL
[2022-06-03] MEDS ORDERED: NALOXONE 0.4 MG/ML 1 ML VIAL IV PRN (18:44)
[2022-06-03] MEDS ORDERED: LORazepam 1 MG TAB PO PRN (18:45)
[2022-06-03] MEDS ORDERED: THIAMINE 100 MG/ML 2 ML VIAL IM STA (18:45)
[2022-06-03] MEDS ORDERED: NICOTINE 21MG/24HR PATCH TRANSDERM STA (18:46)
[2022-06-03] MEDS: SODIUM CHLORIDE 0.9% 1,000 ML IV SCH (19:06)
[2022-06-03] MEDS ORDERED: MELATONIN 1 MG TAB PO SCH (21:00)
[2022-06-03] MEDS: QUEtiapine 200 MG TAB PO SCH (21:10)
[2022-06-03] MEDS: GABAPENTIN 100 MG CAP PO SCH (21:10)
[2022-06-04 01:51] VITALS: BP 109/75
[2022-06-04] MEDS ORDERED: ACETAMINOPHEN TAB 325 MG TAB PO STA (08:09)
[2022-06-04 08:11] VITALS: PULSE 80; RESP 17; TEMP 97.8
[2022-06-04] MEDS: GABAPENTIN 100 MG CAP PO SCH (08:48)
[2022-06-04] MEDS: QUEtiapine 200 MG TAB PO SCH (08:48)
[2022-06-04] MEDS ORDERED: THIAMINE 100 MG TAB PO SCH (09:00)
[2022-06-04] MEDS ORDERED: ESCITALOPRAM 20 MG TAB PO SCH (09:00)
[2022-06-04] MEDS ORDERED: NALTREXONE HCL 50 MG TAB PO SCH (09:00)
[2022-06-04] MEDS ORDERED: ARIPiprazole 2 MG TAB PO SCH (09:00)
[2022-06-04] MEDS: SODIUM CHLORIDE 0.9% 1,000 ML IV SCH (09:15)
--- NOTE | 2022-06-04 14:15 | P.HPIM ---
History of Present Illness H&P Date: 06/04/22 This is a 31-year-old female who presented to the emergency department with alcohol intoxication. Patient does have a past medical history of alcohol abuse and saw her on cameras stumbling around at home in the backyard with multiple beer or liquor bottles scattered and called EMS. Patient was placed on CIWA protocol and IV hydration. Patient reports she did have some nausea last night and vomited although none further and not much of an appetite this morning but did manage to eat some of her breakfast with no further vomiting. Patient currently not withdrawing reports she does drink sometimes almost daily. Patient does follow with [facility] and is on number of psych meds and reports she has been taking those as scheduled. Patient currently does not have a primary care provider. Patient does report a past medical history of depression. Patient denies any suicidal thoughts or ideations. Patient reports she drinks beer sometimes liquor, smokes approximately 1 pack per cigarettes a day and does smoke marijuana. Review Of Systems: Constitutional: No fever, no chills, no night sweats. No weight change. No weakness, fatigue or lethargy. No daytime sleepiness. EENT: No headache. No blurred vision or double vision, no loss of vision. No loss of Hearing, no ringing in the ears, no dizziness. No nasal drainage or congestion. No epistaxis. No sore throat. Lungs: No shortness of breath, cough, no sputum production. No wheezing. Cardiovascular: No chest pain, no lower extremity edema. No palpitations. No paroxysmal nocturnal dyspnea. No orthopnea. No lightheadedness or dizziness. No syncopal episodes. Abdominal: No abdominal pain. Reported nausea last night with one episode of vomiting. No diarrhea. No constipation. No bloody or tarry stools.. No loss of appetite. Genitourinary: No dysuria, increased frequency, urgency. No urinary retention. Musculoskeletal: No myalgias. No muscle weakness, no gait dysfunction, no frequent falls. No back pain. No neck pain. Integumentary: No wounds, no lesions. No rash or pruritus. No unusual bruising. No change in hair or nails. Neurologic: No aphasia. No facial droop. No change in mentation. No head injury. No headache. No paralysis. No paresthesia. Psychiatric: Reports depression history. No anxiety. No mood swings. Endocrine: No abnormal blood sugars. No weight change. No excessive sweating or thirst. No cold intolerance. PHYSICAL EXAMINATION: GENERAL: The patient is alert and oriented x4, Well developed, well nourished. HEENT: Pupils are round and equally reacting to light. EOMI. no scleral icterus. No conjunctival pallor. Normocephalic, atraumatic. No pharyngeal erythema. No thyromegaly. CARDIOVASCULAR: S1 and S2 muffled PULMONARY: diminished breath sounds bilaterally with no wheezing or rhonchi noted. ABDOMEN: soft. Nontender on exam. non-distended, normoactive bowel sounds. No palpable organomegaly. MUSCULOSKELETAL: No joint swelling or deformity. EXTREMITIES: No cyanosis, clubbing, or pedal edema. NEUROLOGICAL: Gross neurological examination did not reveal any focal deficits. SKIN: No rashes. Assessment: Acute alcohol intoxication Mild leukocytosis most likely reactive with no signs of a fever or infection History of depression Continued ongoing nicotine dependence History of alcohol abuse THC use GI prophylaxis DVT prophylaxis Full code Plan: Recommend to continue with current medications and monitor for any signs of withdrawal. Patient was well hydrated and labs reviewed within normal limits. Patient was maintained on CIWA protocol although not requiring any Ativan all night. Patient seen and evaluated this morning with no signs of withdrawal noted. Patient clearly alert and oriented 3. Patient denies any suicidal ideation or thoughts of wanting to harm herself or others. Patient reports she does not currently have a primary care provider but does follow with [facility] for her medications. Patient does take a number of psych medications and encourage the patient to continue to be compliant with medications. Discussed with the patient about possible alcohol rehab and avoiding alcohol use and patient is aware and knows of her resources but is not ready to quit drinking at this time. Patient will likely be discharged later today. The impression and plan of care has been dictated by Rosa Cristobal, nurse practitioner as directed. Dr. Luis Eduardo ROSARIO I have performed a history and examination and MDM of this patient, discussed the same with the dictator, and agree with the dictator's assessment and plan as written ,documented as a scribe. Based on total visit time, I have performed more than 50% of the visit. Any additional findings or plans will be noted. Past Medical History Past Medical History: No Reported History Additional Past Medical History / Comment(s): Current self-inflicted lacerations to anterior bilat. forearms with sutures. History of Any Multi-Drug Resistant Organisms: None Reported Past Surgical History: No Surgical Hx Reported Past Anesthesia/Blood Transfusion Reactions: No Reported Reaction Additional Past Anesthesia/Blood Transfusion Reaction / Comment(s): Pt. had 2 Epidurals with childbirth without any reaction but has had no other types of anesthesia or blood transfusions. Past Psychological History: Depression Smoking Status: Current every day smoker Past Alcohol Use History: None Reported Additional Past Alcohol Use History / Comment(s): Pt denies ETOH for >1year. Hx of rehab. Past Drug Use History: Marijuana Additional Drug Use History / Comment(s): Pt. states that when she was 16 y.o. she abused MJ and pain meds./opiates but none since then. - Past Family History Mother Family Medical History: Congestive Heart Failure (CHF), Liver Disease Additional Family Medical History / Comment(s): Pt. states her mother abused alcohol and at the age of 42 y.o. from CHF and Cirrhosis of the liver due to the sub. abuse. Medications and Allergies Home Medications Medication Instructions Recorded Confirmed Type Escitalopram [Lexapro] 20 mg PO DAILY 30 Days tab 10/14/20 06/03/22 Rx ARIPiprazole [Abilify] 2 mg PO DAILY 06/03/22 06/03/22 History Gabapentin [Neurontin] 100 mg PO TID 06/03/22 06/03/22 History Melatonin 2 mg PO HS 06/03/22 06/03/22 History Naltrexone HCl [Revia] 50 mg PO DAILY 06/03/22 06/03/22 History QUEtiapine FUMARATE [SEROquel XR] 400 mg PO HS 06/03/22 06/03/22 History Thiamine [Vitamin B-1] 100 mg PO DAILY 30 Days #30 tab 06/04/22 Rx Allergies Allergy/AdvReac Type Severity Reaction Status Date / Time Tetracyclines Allergy Intermediate Rash/Hives Verified 06/03/22 16:10 Physical Exam Vitals: Vital Signs Temp Pulse Pulse Resp BP BP Pulse Ox 06/04/22 08:00 97.8 F 80 17 96 06/04/22 01:51 98.7 F 95 16 109/75 95 06/03/22 22:26 98.4 F 106 H 16 107/72 95 06/03/22 22:12 69 06/03/22 21:15 98.2 F 99 18 109/75 95 06/03/22 16:01 97.7 F 84 16 117/79 96 Intake and Output 06/03/22 06/04/22 06/04/22 22:59 06:59 14:59 Output Total 300 Balance -300 Output: Emesis 300 Other: # Voids 2 Weight 68.039 kg Results CBC & Chem 7: 06/03/22 16:26 06/03/22 16:26 Labs: Abnormal Lab Results - Last 24 Hours (Table) 06/03/22 06/03/22 06/03/22 Range/Units 15:56 16:26 16:26 WBC 13.7 H (3.8-10.6) k/uL Neutrophils # 9.6 H (1.3-7.7) k/uL Sodium 148 H (137-145) mmol/L Chloride 111 H (98-107) mmol/L Glucose 109 H (74-99) mg/dL Creatine Kinase 152 H (30-135) U/L U Marijuana (THC) Screen Detected H (NotDetected) Serum Alcohol 277 H* mg/dL Thrombosis Risk Factor Assmnt - Choose All That Apply Any of the Below Risk Factors Present?: No Other Risk Factors: No Other congenital or acquired thrombophilia - If yes, enter type in comment: No Thrombosis Risk Factor Assessment Level: Very Low Risk Assessment and Plan Time with Patient: Greater than 30
--- NOTE | 2022-06-06 17:20 | P.DS ---
Providers Date of admission: 06/03/22 18:46 Expected date of discharge: 06/04/22 Attending physician: Alisa Hoff Primary care physician: Stated None Hospital Course: Final diagnosis Acute alcohol intoxication Mild leukocytosis most likely reactive with no signs of a fever or infection History of depression Continued ongoing nicotine dependence History of alcohol abuse THC use GI prophylaxis DVT prophylaxis Full code Discharge disposition Patient is being discharged in a stable condition with guarded prognosis to home. Patient will follow-up with [facility] in the outpatient setting upon discharge. Patient encouraged to establish with a pcp on discharge. Total time taken is greater than 35 minutes. Hospital course This is a 31-year-old female who was recently admitted with alcohol intoxication. Patient was placed on IV hydration and CIWA protocol and did not require any ativan. Patient alert and oriented x3 and steady gait. Patient requesting to go home. Currently no reports of chest pain, shortness of breath, or palpitations. Patient is afebrile. No reports of nausea or vomiting and patient is tolerating diet. Patient will be discharged home today. Guarded prognosis as patient is not currently willing to quit drinking. Recommend alcohol rehab. Physical exam: Gen: This is a 31 year old female who is awake and alert and oriented x3. HEENT: Head is atraumatic, normocephalic. Pupils equal, round. Sclerae is anicteric. NECK: Supple. No JVD. No lymphadenopathy. No thyromegaly. LUNGS: Clear to auscultation. No wheezes or rhonchi. No intercostal retractions. HEART: Regular rate and rhythm. No murmur. ABDOMEN: Soft. Bowel sounds are present. No masses. No tenderness. EXTREMITIES: No pedal edema. No calf tenderness. NEUROLOGICAL: Patient is awake, alert and oriented x3. Cranial nerves 2 through 12 are grossly intact. Please refer to medication reconciliation sheet for a list of medications. The impression and plan of care has been dictated by Rosa Cristobal, Nurse Practitioner as directed. Dr. Luis Eduardo MD I have performed a history and examination and MDM of this patient, discussed the same with the dictator, and agree with the dictator's assessment and plan as written ,documented as a scribe. Based on total visit time, I have performed more than 50% of the visit. Patient Condition at Discharge: Fair Plan - Discharge Summary Discharge Rx Participant: No New Discharge Prescriptions: New Thiamine [Vitamin B-1] 100 mg PO DAILY 30 Days #30 tab Continue Escitalopram [Lexapro] 20 mg PO DAILY 30 Days tab QUEtiapine FUMARATE [SEROquel XR] 400 mg PO HS Gabapentin [Neurontin] 100 mg PO TID Melatonin 2 mg PO HS Naltrexone HCl [Revia] 50 mg PO DAILY ARIPiprazole [Abilify] 2 mg PO DAILY Discharge Medication List Escitalopram [Lexapro] 20 mg PO DAILY 30 Days tab 10/14/20 [Rx] ARIPiprazole [Abilify] 2 mg PO DAILY 06/03/22 [History] Gabapentin [Neurontin] 100 mg PO TID 06/03/22 [History] Melatonin 2 mg PO HS 06/03/22 [History] Naltrexone HCl [Revia] 50 mg PO DAILY 06/03/22 [History] QUEtiapine FUMARATE [SEROquel XR] 400 mg PO HS 06/03/22 [History] Thiamine [Vitamin B-1] 100 mg PO DAILY 30 Days #30 tab 06/04/22 [Rx] Follow up Appointment(s)/Referral(s): None,Stated [Primary Care Provider] - 1-2 days Patient Instructions/Handouts: Abuse of Alcohol (DC) Activity/Diet/Wound Care/Special Instructions: Activity Limited until follow-up Establish with a primary care provider on discharge Continue [facility] Continue taking your prescribed medications Avoid all alcohol consumption Discharge Disposition: HOME SELF-CARE
== END 2022-06-04 14:16 | disposition home or self-care (01) ==
LOC: EC 15:40 → 6NMEDSUR 18:46 → 4SSUR 19:49
PROVIDERS: ADMIT Internal Medicine; ATTEND Internal Medicine
DX: F10.120 Alcohol abuse with intoxication, uncomplicated (principal); F31.9 Bipolar disorder, unspecified; F32.A Depression, unspecified; F17.210 Nicotine dependence, cigarettes, uncomplicated; F12.90 Cannabis use, unspecified, uncomplicated; D72.829 Elevated white blood cell count, unspecified; Z79.899 Other long term (current) drug therapy; Z88.1 Allergy status to other antibiotic agents; Z82.49 Family history of ischemic heart disease and other diseases of the circulatory system; Z83.79 Family history of other diseases of the digestive system; Z81.3 Family history of other psychoactive substance abuse and dependence; Z81.1 Family history of alcohol abuse and dependence; Z32.02 Encounter for pregnancy test, result negative; Y90.8 Blood alcohol level of 240 mg/100 ml or more
CPT/HCPCS: 99285; 36415; 93005; 80053; 82550; 83690; 83735; 85025; 81025; 80306; 80320; G0378 ×2; S4990

== ENCOUNTER 2023-06-19 17:33 | Emergency (ER) | payer OTHER ==
[2023-06-19 18:24] LABS: Amphetamine Screen,Urine Not Detected (NotDetected); Barbiturate Screen,Urine Not Detected (NotDetected); Benzodiazepines Screen,Urine Not Detected (NotDetected); Cocaine Screen,Urine Not Detected (NotDetected); Methadone Screen, Urine Not Detected (NotDetected); Opiate Screen,Urine Not Detected (NotDetected); Oxycodone Screen, Urine Not Detected (NotDetected); Phencyclidine Screen,Urine Not Detected (NotDetected); Tricyclic Antidepressant,Urine Not Detected (NotDetected); Urn Cannabinoid Scrn Detected (NotDetected)
--- NOTE | 2023-06-19 18:50 | ED ---
General Adult HPI - General Chief complaint: Psychiatric Symptoms Stated complaint: petition/mental health Time Seen by Provider: 06/19/23 17:52 Source: police Mode of arrival: ambulatory Limitations: no limitations - History of Present Illness Initial comments: Dictation was produced using [employer] dictation software. please excuse any grammatical, word or spelling errors. Chief Complaint: 32-year-old female presents to the ER for psychiatric evaluation. History of Present Illness: 32-year-old female she made suicidal comments to her . She is drinking today. She was brought in for psychiatric evaluation. Family she has a history of mental health problems. Denies any suicidal or homicidality at the bedside. She is apologetic for said. She does report to drinking alcohol today. The ROS documented in this emergency department record has been reviewed and confirmed by me. Those systems with pertinent positive or negative responses have been documented in the HPI. All other systems are other negative and/or n oncontributory. - Related Data Home Medications Medication Instructions Recorded Confirmed ARIPiprazole [Abilify] 2 mg PO DAILY 06/03/22 06/19/23 Gabapentin [Neurontin] 100 mg PO BID@0600,1200 06/03/22 06/19/23 Ergocalciferol (Vitamin D2) 1,250 mcg PO Q30D 06/19/23 06/19/23 [Drisdol (50,000 Iu)] Gabapentin [Neurontin] 300 mg PO HS 06/19/23 06/19/23 QUEtiapine FUMARATE [SEROquel XR] 300 mg PO HS 06/19/23 06/19/23 Previous Rx's Medication Instructions Recorded Escitalopram [Lexapro] 20 mg PO DAILY 30 Days tab 10/14/20 Allergies Allergy/AdvReac Type Severity Reaction Status Date / Time Tetracyclines Allergy Intermediate Rash/Hives Verified 06/19/23 20:28 Review of Systems ROS Statement: Those systems with pertinent positive or pertinent negative responses have been documented in the HPI. ROS Other: All systems not noted in ROS Statement are negative. Past Medical History Past Medical History: No Reported History Additional Past Medical History / Comment(s): Current self-inflicted lacerations to anterior bilat. forearms with sutures. History of Any Multi-Drug Resistant Organisms: None Reported Past Surgical History: No Surgical Hx Reported Past Anesthesia/Blood Transfusion Reactions: No Reported Reaction Additional Past Anesthesia/Blood Transfusion Reaction / Comment(s): Pt. had 2 Epidurals with childbirth without any reaction but has had no other types of anesthesia or blood transfusions. Past Psychological History: Depression Smoking Status: Current every day smoker Past Alcohol Use History: None Reported Past Drug Use History: Marijuana - Past Family History Mother Family Medical History: Congestive Heart Failure (CHF), Liver Disease Additional Family Medical History / Comment(s): Pt. states her mother abused alcohol and at the age of 42 y.o. from CHF and Cirrhosis of the liver due to the sub. abuse. General Exam - General Exam Comments Initial Comments: PHYSICAL EXAM: General Impression: Alert and oriented x3, not in acute distress HEENT: Normocephalic atraumatic, extra-ocular movements intact, pupils equal and reactive to light bilaterally, mucous membranes moist. Cardiovascular: Heart regular rate and rhythm Chest: Able to complete full sentences, no retractions, no tachypnea Abdomen: abdomen soft, non-tender, non-distended, no organomegaly Musculoskeletal: Pulses present and equal in all extremities, no peripheral edema Motor: no focal deficits noted Neurological: CN II-XII grossly intact, no focal motor or sensory deficits noted Skin: Intact with no visualized rashes Psych: Normal affect and mood Limitations: no limitations Course Vital Signs 06/19/23 06/20/23 06/20/23 17:41 05:31 15:31 Temperature 98 F 98.7 F Pulse Rate 96 78 82 Respiratory 16 16 16 Rate Blood Pressure 157/93 118/72 124/86 O2 Sat by Pulse 98 99 96 Oximetry 06/21/23 06/21/23 06/21/23 05:47 09:01 16:25 Temperature 97.7 F 98.5 F 98.7 F Pulse Rate 89 106 H 64 Respiratory 18 18 22 Rate Blood Pressure 119/88 116/77 121/91 O2 Sat by Pulse 95 97 98 Oximetry 06/21/23 06/21/23 18:57 19:45 Temperature Pulse Rate 90 86 Respiratory 18 18 Rate Blood Pressure 124/89 118/84 O2 Sat by Pulse 97 97 Oximetry Medical Decision Making - Medical Decision Making Was pt. sent in by a medical professional or institution (, PA, INGREDIENT SPECIALIST, urgent care, hospital, or detention...) When possible be specific @ -No Did you speak to anyone other than the patient for history (EMS, parent, family, police, friend...)? What history was obtained from this source @ -No Did you review nursing and triage notes (agree or disagree)? Why? @ -I reviewed and agree with nursing and triage notes Were old charts reviewed (outside hosp., previous admission, EMS record, old EKG, old radiological studies, urgent care reports/EKG's, detention records)? Report findings @ -No old charts were reviewed Differential Diagnosis (chest pain, altered mental status, abdominal pain women, abdominal pain men, vaginal bleeding, musculoskeletal, weakness, fever, dyspnea, syncope, headache, dizziness, GI bleed, back pain, seizure, CVA, palpatations, mental health)? @ -Differential Mental Health: Depression, anxiety, bipolar, psychosis, schizophrenia, borderline personality, situational depression, adjustment disorder, behavioral disorder, brain tumor, malingering, substance abuse, encephalopathy, medication reaction, dementia, hypothyroidism, degenerative neurologic disorder, lupus.... This is not meant to be all-inclusive list EKG interpreted by me (3pts min.). @ -None done X-rays interpreted by me (1pt min.). @ -None done CT interpreted by me (1pt min.). @ -None done U/S interpreted by me (1pt. min.). @ -None done What testing was considered but not performed or refused? (CT, X-rays, U/S, labs)? Why? @ -None What meds were considered but not given or refused? Why? @ -None Did you discuss the management of the patient with other professionals (professionals i.e. , PA, INGREDIENT SPECIALIST, lab, RT, psych nurse, social contact worker, bonding and composite fabricator, teacher, risk control officer, casey saw operator)? Give summary @ -No Was smoking cessation discussed for >3mins.? @ -No Was critical care preformed (if so, how long)? @ -No Were there social determinants of health that impacted care today? How? (Homelessness, low income, unemployed, alcoholism, drug addiction, transportation, low edu. Level, literacy, decrease access to med. care, correction, rehab)? @ -No Was there de-escalation of care discussed even if they declined (Discuss DNR or withdrawal of care, Hospice)? DNR status @ -No What co-morbidities impacted this encounter? (DM, HTN, Smoking, COPD, CAD, Cancer, CVA, ARF, Chemo, Hep., AIDS, mental health diagnosis, sleep apnea, morbid obesity)? @ -None Was patient admitted / discharged? Hospital course, mention meds given and r oute, prescriptions, significant lab abnormalities, going to OR and other pertinent info. @ -32-year-old male presents to the ER for suicidal ideation and alcohol intoxication. Vital signs stable. Patient positive for breath alcohol test. Pending sobriety for EPS evaluation. Patient presented to Dr. Cagle at 9:00 PM Patient's chart review to later date showing the patient was transferred to outside inpatient psychiatric facility Undiagnosed new problem with uncertain prognosis? @ -No Drug Therapy requiring intensive monitoring for toxicity (Heparin, Nitro, Insulin, Cardizem)? @ -No Were any procedures done? @ -No Diagnosis/symptom? Acute, or Chronic, or Acute on Chronic? Uncomplicated (without systemic symptoms) or Complicated (systemic symptoms)? @ -Suicidal ideation Side effects of treatment? @ -No Exacerbation, Progression, or Severe Exacerbation? @ -No Poses a threat to life or bodily function? How? (Chest pain, [place], [place], pneumonia, PE, COPD, DKA, ARF, appy, cholecystitis, CVA, Diverticulitis, Homicidal, Suic idal, threat to staff... and all critical care pts) @ -yes - Lab Data Result diagrams: 06/20/23 15:09 06/20/23 15:09 Lab Results 06/19/23 06/19/23 06/19/23 Range/Units 17:08 17:48 18:07 WBC (3.8-10.6) k/uL RBC (3.80-5.40) m/uL Hgb (11.4-16.0) gm/dL Hct (34.0-46.0) % MCV (80.0-100.0) fL MCH (25.0-35.0) pg MCHC (31.0-37.0) g/dL RDW (11.5-15.5) % Plt Count (150-450) k/uL MPV Sodium (137-145) mmol/L Potassium (3.5-5.1) mmol/L Chloride (98-107) mmol/L Carbon Dioxide (22-30) mmol/L Anion Gap mmol/L BUN (7-17) mg/dL Creatinine (0.52-1.04) mg/dL Est GFR (CKD-EPI)AfAm (>60 ml/min/1.73 sqM) Est GFR (CKD-EPI)NonAf (>60 ml/min/1.73 sqM) Glucose (74-99) mg/dL Calcium (8.4-10.2) mg/dL Total Bilirubin (0.2-1.3) mg/dL AST (14-36) U/L ALT (4-34) U/L Alkaline Phosphatase (38-126) U/L Total Protein (6.3-8.2) g/dL Albumin (3.5-5.0) g/dL Urine Color Colorless Urine Appearance Clear (Clear) Urine pH 5.0 (5.0-8.0) Ur Specific Thornton 1.002 (1.001-1.035) Urine Protein Negative (Negative) Urine Glucose (UA) Negative (Negative) Urine Ketones Negative (Negative) Urine Blood Negative (Negative) Urine Nitrite Negative (Negative) Urine Bilirubin Negative (Negative) Urine Urobilinogen <2.0 (<2.0) mg/dL Ur Leukocyte Esterase Negative (Negative) Urine HCG, Qual Not Detected (Not Detectd) Urine Opiates Screen Not Detected (NotDetected) Ur Oxycodone Screen Not Detected (NotDetected) Urine Methadone Screen Not Detected (NotDetected) Ur Propoxyphene Screen Not Detected (NotDetected) Ur Barbiturates Screen Not Detected (NotDetected) U Tricyclic Antidepress Not Detected (NotDetected) Ur Phencyclidine Scrn Not Detected (NotDetected) Ur Amphetamines Screen Not Detected (NotDetected) U Methamphetamines Scrn Not Detected (NotDetected) U Benzodiazepines Scrn Not Detected (NotDetected) Urine Cocaine Screen Not Detected (NotDetected) U Marijuana (THC) Screen Detected H (NotDetected) Coronavirus (PCR) (Not Detectd) 06/20/23 06/20/23 06/20/23 Range/Units 15:09 15:09 15:09 WBC 15.3 H (3.8-10.6) k/uL RBC 4.58 (3.80-5.40) m/uL Hgb 14.4 (11.4-16.0) gm/dL Hct 42.7 (34.0-46.0) % MCV 93.1 (80.0-100.0) fL MCH 31.5 (25.0-35.0) pg MCHC 33.8 (31.0-37.0) g/dL RDW 12.2 (11.5-15.5) % Plt Count 330 (150-450) k/uL MPV 6.9 Sodium 139 (137-145) mmol/L Potassium 3.9 (3.5-5.1) mmol/L Chloride 109 H (98-107) mmol/L Carbon Dioxide 20 L (22-30) mmol/L Anion Gap 10 mmol/L BUN 9 (7-17) mg/dL Creatinine 0.65 (0.52-1.04) mg/dL Est GFR (CKD-EPI)AfAm >90 (>60 ml/min/1.73 sqM) Est GFR (CKD-EPI)NonAf >90 (>60 ml/min/1.73 sqM) Glucose 89 (74-99) mg/dL Calcium 9.5 (8.4-10.2) mg/dL Total Bilirubin 0.8 (0.2-1.3) mg/dL AST 28 (14-36) U/L ALT 16 (4-34) U/L Alkaline Phosphatase 77 (38-126) U/L Total Protein 7.2 (6.3-8.2) g/dL Albumin 4.0 (3.5-5.0) g/dL Urine Color Urine Appearance (Clear) Urine pH (5.0-8.0) Ur Specific Thornton (1.001-1.035) Urine Protein (Negative) Urine Glucose (UA) (Negative) Urine Ketones (Negative) Urine Blood (Negative) Urine Nitrite (Negative) Urine Bilirubin (Negative) Urine Urobilinogen (<2.0) mg/dL Ur Leukocyte Esterase (Negative) Urine HCG, Qual (Not Detectd) Urine Opiates Screen (NotDetected) Ur Oxycodone Screen (NotDetected) Urine Methadone Screen (NotDetected) Ur Propoxyphene Screen (NotDetected) Ur Barbiturates Screen (NotDetected) U Tricyclic Antidepress (NotDetected) Ur Phencyclidine Scrn (NotDetected) Ur Amphetamines Screen (NotDetected) U Methamphetamines Scrn (NotDetected) U Benzodiazepines Scrn (NotDetected) Urine Cocaine Screen (NotDetected) U Marijuana (THC) Screen (NotDetected) Coronavirus (PCR) Not Detected (Not Detectd) Disposition Clinical Impression: Suicidal ideation Disposition: TRANSFER TO PSYCH HOSP/UNIT Referrals: None,Stated [Primary Care Provider] - 1-2 days
[2023-06-20 15:07] LABS: Appearance,Urine Clear (Clear); Bilirubin,Urine Negative (Negative); Blood,Urine Negative (Negative); Color,Urine Colorless; Glucose,Urine (UA) Negative (Negative); Ketones,Urine Negative (Negative); Leukocyte Esterase,Urine Negative (Negative); Nitrite,Urine Negative (Negative); Protein,Urine Negative (Negative); Specific Gravity,Urine 1.002 (1.001-1.035); Urobilinogen,Urine <2.0 mg/dL (<2.0)
[2023-06-20] MEDS: ESCITALOPRAM 20 MG TAB PO SCH (15:14)
[2023-06-20] MEDS: GABAPENTIN 100 MG CAP PO SCH (15:14)
[2023-06-20] MEDS: QUEtiapine 100 MG TAB PO SCH ×2 (15:14→21:30)
[2023-06-20] MEDS: ARIPiprazole 2 MG TAB PO SCH (15:15)
[2023-06-20 15:23] LABS: HCT 42.7 % (34.0-46.0); HGB 14.4 gm/dL (11.4-16.0); MCH 31.5 pg (25.0-35.0); MCHC 33.8 g/dL (31.0-37.0); MCV 93.1 fL (80.0-100.0); Mean Platelet Volume 6.9; Platelet Count 330 k/uL (150-450); RBC 4.58 m/uL (3.80-5.40); RDW 12.2 % (11.5-15.5); WBC 15.3 k/uL (3.8-10.6)
[2023-06-20] MEDS ORDERED: NICOTINE 14MG/24HR PATCH TRANSDERM STA (15:24)
[2023-06-20 15:33] LABS: ALT 16 U/L (4-34); AST 28 U/L (14-36); African American GFR (CKD) >90 (>60 ml/min/1.73 sqM); Alkaline Phosphatase 77 U/L (38-126); Anion Gap 10 mmol/L; Blood Urea Nitrogen 9 mg/dL (7-17); Calcium 9.5 mg/dL (8.4-10.2); Carbon Dioxide 20 mmol/L (22-30); Chloride 109 mmol/L (98-107); Glucose 89 mg/dL (74-99); Non-African American GFR(CKD) >90 (>60 ml/min/1.73 sqM); Potassium 3.9 mmol/L (3.5-5.1); Sodium 139 mmol/L (137-145); Total Bilirubin 0.8 mg/dL (0.2-1.3); Total Protein 7.2 g/dL (6.3-8.2)
[2023-06-20] MEDS ORDERED: GABAPENTIN 300 MG CAP PO SCH (21:00)
[2023-06-21] MEDS: GABAPENTIN 100 MG CAP PO SCH ×2 (05:47→11:47)
[2023-06-21] MEDS: ARIPiprazole 2 MG TAB PO SCH (08:59)
[2023-06-21] MEDS: ESCITALOPRAM 20 MG TAB PO SCH (08:59)
[2023-06-21] MEDS: QUEtiapine 100 MG TAB PO SCH (09:00)
[2023-06-21 16:40] VITALS: TEMP 98.7
[2023-06-21 19:04] VITALS: RESP 18
[2023-06-21] MEDS ORDERED: NICOTINE 14MG/24HR PATCH TRANSDERM STA (19:37)
[2023-06-21 20:06] VITALS: BP 118/84; PULSE 86
[2023-07-06] MEDS ORDERED: ERGOCALCIFEROL 1,250 MCG (50,000 IU) CAPSULE PO SCH (09:00)
== END 2023-06-21 19:48 ==
LOC: EC 17:33
DX: R45.851 Suicidal ideations (principal); F32.A Depression, unspecified; F17.200 Nicotine dependence, unspecified, uncomplicated; F12.90 Cannabis use, unspecified, uncomplicated; Z20.822 Contact with and (suspected) exposure to COVID-19; Z79.899 Other long term (current) drug therapy; Z88.8 Allergy status to other drugs, medicaments and biological substances
CPT/HCPCS: 82075; 36415; 80053; 85027; 81003; 81025; 80306; 87635; 99285; S4990 ×2